=== PATIENT | female | born 1930 | race Caucasian/White ===

== ENCOUNTER → 2016-06-29 | Day surgery (SDC) | payer MEDICARE ==
[~2016-06-29] MED LIST: ALPRAZolam 0.25 MG TAB ONE; BACITRACIN OINT 1 EACH PACKET TOPICAL ONE; LIDOCAINE 1% INJ 10MG/ML (20 ML MDV) ONE; SODIUM BICARB 4% 5 ML VIAL (0.48 MEQ/ML) ONE
--- NOTE | 2016-06-29 16:44 | MM ---
EXAMINATION TYPE: MG stereo VAD BX LT DATE OF EXAM: 06/29/2016 3:30 PM COMPARISON: 05/31/2016 CLINICAL HISTORY: Abnormal mammogram TECHNIQUE: Stereotactic guided core biopsy of left breast. FINDINGS: The procedure of stereotactic guided core biopsy was explained to the patient. Benefits, alternatives, and risks were discussed. An informed consent was then obtained. A timeout was performed. The shortness pathway for biopsy was chosen. Shortness pathway was MLO approach. Radiologist performed the procedure and localization. A vacuum assisted biopsy gun was used to obtain 4 core samples. The patient tolerated the procedure well without any immediate complication. Small amount of bleeding was evident during the exam which was controlled with direct pressure. The patient was kept in the radiology department for short stay after the procedure and then discharged home in stable condition. Targeted calcifications are identified in specimen mammogram. Post biopsy mammogram shows the clip to appear in satisfactory position relative to the targeted area of concern on the preprocedure images. IMPRESSION: 1. Successful left breast stereotactic core biopsy left breast calcifications. Recommendations: 1. Recommendations are pending pathology results. 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 Recommendation Follow up mammogram of the left breast in 6 months. [place]
== END ==
LOC: RADMAMWWP 06-28 07:00
PROVIDERS: ATTEND Surgery
DX: D24.2 Benign neoplasm of left breast (principal); R92.0 Mammographic microcalcification found on diagnostic imaging of breast; N60.32 Fibrosclerosis of left breast; N60.22 Fibroadenosis of left breast
CPT/HCPCS: 88305; 19081; A4648; J2001

== ENCOUNTER 2016-11-24 17:27 | Emergency (ER) | payer MEDICARE ==
[2016-11-24 17:35] VITALS: RESP 18
--- NOTE | 2016-11-24 18:12 | ED ---
General Adult HPI - General Chief complaint: Fall Stated complaint: Fall-head pain Time Seen by Provider: 11/24/16 17:51 Source: patient, RN notes reviewed Mode of arrival: ambulatory Limitations: no limitations - History of Present Illness Initial comments: 86-year-old female presents to emergency room chief complaint fall. Patient states that she tripped over the sternum and the gradual. She fell into the left back of her head into her tailbone. Patient denies a headache. They deny him some bleeding. Patient does admit to pain to the bottom. Patient states she now discussed that she has not had nausea. Patient denies use of blood thinners. She was able to cannulate after the incident. They were concerned due to the bleeding had as well as the tailbone injury so they thought they should be evaluated. Patient denies any recent fever, chills, shortness of breath, chest pain, back pain, abdominal pain, nausea vomiting, numbness or tingling, dysuria or hematuria, constipation or diarrhea, headaches or visual changes, or any other current symptoms. - Related Data Allergies Allergy/AdvReac Type Severity Reaction Status Date / Time No Known Allergies Allergy Verified 11/24/16 17:35 Review of Systems ROS Statement: Those systems with pertinent positive or pertinent negative responses have been documented in the HPI. ROS Other: All systems not noted in ROS Statement are negative. Past Medical History Past Medical History: Thyroid Disorder History of Any Multi-Drug Resistant Organisms: None Reported Additional Past Surgical History / Comment(s): thyroidectomy Past Psychological History: No Psychological Hx Reported Smoking Status: Never smoker Past Alcohol Use History: None Reported Past Drug Use History: None Reported General Exam Limitations: no limitations General appearance: alert, in no apparent distress Head exam: Present: normocephalic, other. Absent: normal inspection (Patient is appear to have a 0.25 cm abrasion to the back of the head) Eye exam: Present: normal appearance, PERRL, EOMI. Absent: scleral icterus, conjunctival injection, periorbital swelling ENT exam: Present: normal exam, mucous membranes moist Neck exam: Present: normal inspection. Absent: tenderness, meningismus, lymphadenopathy Respiratory exam: Present: normal lung sounds bilaterally. Absent: respiratory distress, wheezes, rales, rhonchi, stridor Cardiovascular Exam: Present: regular rate, normal rhythm, normal heart sounds. Absent: systolic murmur, diastolic murmur, rubs, gallop, clicks Extremities exam: Present: normal inspection, full ROM, normal capillary refill. Absent: tenderness, pedal edema, joint swelling, calf tenderness Back exam: Present: normal inspection, full ROM, tenderness (Over the sacrum). Absent: CVA tenderness (R), CVA tenderness (L), muscle spasm, paraspinal tenderness, vertebral tenderness Neurological exam: Present: alert, oriented X3 Psychiatric exam: Present: normal affect, normal mood Skin exam: Present: warm, dry, intact, normal color. Absent: rash Course Vital Signs 11/24/16 17:29 Temperature 97.2 F L Pulse Rate 74 Respiratory 18 Rate Blood Pressure 133/69 O2 Sat by Pulse 100 Oximetry Medical Decision Making - Medical Decision Making 86-year-old female presents for head pain and back pain after fall. This time. There is reviewed. We did discuss the meningioma on CT. Centimeters acute process. We discussed snf. Discussed return parameters and follow-up outpatient questions. He stated the Steve management plan. They will be discharged home. Disposition Clinical Impression: Fall, Scalp hematoma, Scalp abrasion, Head injury, Sacral contusion Disposition: HOME SELF-CARE Condition: Stable Instructions: Fall Prevention for Older Adults (ED), Head Injury (ED), Contusion in Adults (ED) Additional Instructions: Please use medication as discussed. Please follow up with family doctor if symptoms have not improved over the next two days. Please return to the emergency room if your symptoms increase or worsen or for any other concerns. Referrals: Jacek Murcia MD [Primary Care Provider] - 1-2 days Time of Disposition: 19:10
--- NOTE | 2016-11-24 18:44 | CT ---
EXAMINATION TYPE: CT brain rudi vick DATE OF EXAM: 11/24/2016 COMPARISON: NONE HISTORY: Posterior head injury today. CT DLP: 1395 mGycm Automated exposure control for dose reduction was used. TECHNIQUE: CT scan of the head and cervical spine are performed without contrast. FINDINGS: There is cerebral cortical atrophy. There is no mass effect nor midline shift. There is n o sign of intracranial hemorrhage. There is mild hypodensity in the periventricular white matter. The calvarium is intact. There is extra-axial 2 x 1 cm area of calcification in the right posterior ruth etal convexity that could relate to a bilobed meningioma. The cervical vertebra show a few millimeter anterior subluxation of C4 in relation to C5. There is na rrowing of disc spaces from C4 to C7 with spurring of the endplates. The skull base is intact. There is hypertrophic facet arthropathy in the mid and lower cervical spine. I see no fracture. IMPRESSION: Cerebral atrophy and chronic small vessel ischemia. Right posterior parietal lobe convexity calcifica tion is probably due to calcifying meningioma. Moderate multilevel spondylosis in the cervical spine. No fracture.
--- NOTE | 2016-11-24 19:04 | XR ---
EXAMINATION TYPE: XR lumbar spine 2 or 3V DATE OF EXAM: 11/24/2016 COMPARISON: NONE HISTORY: Back pain TECHNIQUE: 3 views FINDINGS: Vertebra show fairly normal alignment. There is moderate narrowing of the disc spaces at L2 -3 L3-4 with spurring of the endplates. I see no definite compression fracture. There is mild subluxa tion of L2 to the right of L3 of 8 mm. Sacroiliac joints are intact. IMPRESSION: Multilevel spondylosis. Degenerative subluxation deformity at L2-3. No acute bony abnorma lity. Atheromatous aorta.
--- NOTE | 2016-11-24 19:05 | XR ---
EXAMINATION TYPE: XR sacrum coccyx DATE OF EXAM: 11/24/2016 COMPARISON: NONE HISTORY: Pain TECHNIQUE: 3 views FINDINGS: Segments have normal alignment. I see no fracture. Sacroiliac joints appear normal. IMPRESSION: Negative sacrum and coccyx exam.
[2016-11-24 19:27] VITALS: BP 161/72; PULSE 67; TEMP 98
== END 2016-11-24 19:27 | disposition home or self-care (01) ==
LOC: EC 17:27
DX: S00.03XA Contusion of scalp, initial encounter (principal); S30.0XXA Contusion of lower back and pelvis, initial encounter; W01.0XXA Fall on same level from slipping, tripping and stumbling without subsequent striking against object, initial encounter; Y92.015 Private garage of single-family (private) house as the place of occurrence of the external cause
CPT/HCPCS: 70450; 72100; 72125; 72220; 99284

== ENCOUNTER → 2018-12-03 | Outpatient (CLI) | payer MEDICARE ==
--- NOTE | 2018-12-04 17:09 | NM ---
EXAMINATION TYPE: NM parathyroid w/spect DATE OF EXAM: 12/03/2018 COMPARISON: NONE HISTORY: Hyperparathyroidism TECHNIQUE: Following administration of 23.9 mCi Tc99m Sestamibi. Anterior projection images of the neck and ches t were obtained 10 minutes and 3 hours post injection. SPECT images of the neck and chest were obtai micah and reconstructed in three axes. FINDINGS: Thyroid tracer washout: Delayed images demonstrate near-complete tracer washout from the thyroid. Parathyroid uptake: None. The delayed images do not demonstrate any focal abnormal persistent uptake in the region of the parathyroid glands to suggest parathyroid adenoma. Normal uptake: There is physiological tracer uptake in the myocardium, liver, salivary glands, and th yroid gland. SPECT imaging is reviewed. No suspicious focal areas of uptake identified IMPRESSION: 1. Normal parathyroid imaging study. No suspicious changes to suggest parathyroid adenoma.
== END | disposition home or self-care (01) ==
LOC: RADNMMAIN 11-21 11:18
PROVIDERS: ATTEND Internal Medicine
DX: E21.3 Hyperparathyroidism, unspecified (principal)
CPT/HCPCS: 78071; A9500

== ENCOUNTER 2020-04-30 14:26 | Emergency (ER) | payer MEDICARE ==
[2020-04-30 14:35] VITALS: RESP 18; TEMP 97.9
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
[2020-04-30 16:20] VITALS: BP 168/88; PULSE 98
== END 2020-04-30 16:25 | disposition home or self-care (01) ==
LOC: EC 14:26
DX: S00.03XA Contusion of scalp, initial encounter (principal); W22.8XXA Striking against or struck by other objects, initial encounter; Y92.008 Other place in unspecified non-institutional (private) residence as the place of occurrence of the external cause
CPT/HCPCS: 70450; 72125; 99284

== ENCOUNTER 2021-08-08 11:20 | Observation (INO) | payer MEDICARE ==
[2021-08-08 11:28] LABS: Glucose,Whole Blood 103 mg/dL (75-99)
--- NOTE | 2021-08-08 11:31 | ED ---
General Adult HPI - General Stated complaint: Fall Time Seen by Provider: 08/08/21 11:20 Source: patient, RN notes reviewed, old records reviewed - History of Present Illness Initial comments: This is an 89-year-old female who was found down this morning at approximately 10:45. Patient also had a fall earlier yesterday where she hurt her right arm but did not want come the hospital be evaluated. That arm is now swollen and v ritu ecchymotic around the elbow. Patient states other than the elbow from yesterday's fall she has no complaints. Patient initially according to EMS was somewhat confused but came around fairly quickly and was alert and oriented 4 and showed no signs of any stroke. Patient denies any headache patient denies neck pain patient denies any chest or back pain. Patient is abdominal pain patient denies any recent fever chills or cough per patient denies any abdominal pain. Patient denies any recent vomiting or diarrhea. - Related Data Home Medications Medication Instructions Recorded Confirmed Apixaban [Eliquis] 2.5 mg PO BID 08/08/21 08/08/21 Atorvastatin [Lipitor] 10 mg PO HS 08/08/21 08/08/21 Dorzolamide 2% [Trusopt 2%] 1 drops BOTH EYES BID 08/08/21 08/08/21 Metoprolol Tartrate [Lopressor] 100 mg PO BID-W/MEALS 08/08/21 08/08/21 hydrALAZINE HCL [Apresoline] 25 mg PO BID 08/08/21 08/08/21 lisinopriL [Zestril] 20 mg PO DAILY 08/08/21 08/08/21 Allergies Allergy/AdvReac Type Severity Reaction Status Date / Time No Known Allergies Allergy Verified 08/08/21 13:42 Review of Systems ROS Statement: Those systems with pertinent positive or pertinent negative responses have been documented in the HPI. ROS Other: All systems not noted in ROS Statement are negative. Past Medical History Past Medical History: Thyroid Disorder Additional Past Medical History / Comment(s): essential tremmors. History of Any Multi-Drug Resistant Organisms: None Reported Additional Past Surgical History / Comment(s): thyroidectomy Past Psychological History: No Psychological Hx Reported Past Alcohol Use History: None Reported Past Drug Use History: None Reported General Exam - General Exam Comments Initial Comments: GENERAL: Patient is well-developed and well-nourished. Patient is nontoxic and well- hydrated and is in mild distress. ENT: Neck is soft and supple. No significant lymphadenopathy is noted. Oropharynx is clear. Moist mucous membranes. Neck has full range of motion without eliciting any pain. Patient has a little ecchymosis to the right lateral orbital area EYES: The sclera were anicteric and conjunctiva were pink and moist. Extraocular movements were intact and pupils were equal round and reactive to light. Eyelids were unremarkable. PULMONARY: Unlabored respirations. Good breath sounds bilaterally. No audible rales rhonchi or wheezing was noted. CARDIOVASCULAR: There is a regular rate and rhythm without any murmurs gallops or rubs. ABDOMEN: Soft and nontender with normal bowel sounds. SKIN: Skin is clear with no lesions or rashes and otherwise unremarkable. NEUROLOGIC: Patient is alert and oriented x3. Cranial nerves II through XII are grossly intact. Motor and sensory are also intact. Normal speech, volume and content. Symmetrical smile. MUSCULOSKELETAL: Normal extremities with adequate strength and full range of motion. Right elbow is swollen and very ecchymotic and tender to palpation LYMPHATICS: No significant lymphadenopathy is noted PSYCHIATRIC: Normal psychiatric evaluation. Course Vital Signs 08/08/21 11:21 Temperature 97.5 F L Pulse Rate 108 H Respiratory 22 Rate Blood Pressure 150/110 O2 Sat by Pulse 96 Oximetry Procedures - Orthopedic Splinting/Casting Injury #1 Side: right Upper Extremity Injury Location: long arm, elbow Upper Extremity Immobilizer: posterior splint Medical Decision Making - Medical Decision Making EKG shows atrial flutter at 104 bpm QRS is 98 QT interval 316 QTC is 429. Patient's EKG shows no ST segment elevation or depression. CT of the brain and C-spine showed no abnormalities. New. Chest x-ray shows no acute abnormality. X-ray of the elbow shows an olecranon fracture. I spoke with Cynthia, she agreed to admit the patient admitted the patient wrote admitting orders. I consult the medicine. - Lab Data Result diagrams: 08/08/21 11:23 08/08/21 11:23 Lab Results 08/08/21 08/08/21 08/08/21 Range/Units 11:23 11:23 11:23 WBC 13.2 H (3.8-10.6) k/uL RBC 4.87 (3.80-5.40) m/uL Hgb 16.2 H (11.4-16.0) gm/dL Hct 49.6 H (34.0-46.0) % MCV 101.8 H (80.0-100.0) fL MCH 33.3 (25.0-35.0) pg MCHC 32.7 (31.0-37.0) g/dL RDW 12.9 (11.5-15.5) % Plt Count 197 (150-450) k/uL MPV 8.0 Neutrophils % 74 % Lymphocytes % 16 % Monocytes % 5 % Eosinophils % 0 % Basophils % 0 % Neutrophils # 9.8 H (1.3-7.7) k/uL Lymphocytes # 2.1 (1.0-4.8) k/uL Monocytes # 0.7 (0-1.0) k/uL Eosinophils # 0.1 (0-0.7) k/uL Basophils # 0.1 (0-0.2) k/uL Macrocytosis Slight PT 10.5 (9.0-12.0) sec INR 1.0 (<1.2) APTT 23.9 (22.0-30.0) sec Sodium 138 (137-145) mmol/L Potassium 4.4 (3.5-5.1) mmol/L Chloride 102 (98-107) mmol/L Carbon Dioxide 27 (22-30) mmol/L Anion Gap 9 mmol/L BUN 16 (7-17) mg/dL Creatinine 0.56 (0.52-1.04) mg/dL Est GFR (CKD-EPI)AfAm >90 (>60 ml/min/1.73 sqM) Est GFR (CKD-EPI)NonAf 83 (>60 ml/min/1.73 sqM) Glucose 117 H (74-99) mg/dL POC Glucose (mg/dL) (75-99) mg/dL POC Glu Control Room Operator ID Calcium 9.7 (8.4-10.2) mg/dL Magnesium 2.1 (1.6-2.3) mg/dL Total Bilirubin 2.1 H (0.2-1.3) mg/dL AST 59 H (14-36) U/L ALT 29 (4-34) U/L Alkaline Phosphatase 100 (38-126) U/L Creatine Kinase 485 H (30-135) U/L Troponin I (0.000-0.034) ng/mL Total Protein 7.4 (6.3-8.2) g/dL Albumin 4.5 (3.5-5.0) g/dL Urine Color Urine Appearance (Clear) Urine pH (5.0-8.0) Ur Specific [place] (1.001-1.035) Urine Protein (Negative) Urine Glucose (UA) (Negative) Urine Ketones (Negative) Urine Blood (Negative) Urine Nitrite (Negative) Urine Bilirubin (Negative) Urine Urobilinogen (<2.0) mg/dL Ur Leukocyte Esterase (Negative) Urine RBC (0-5) /hpf Urine WBC (0-5) /hpf Urine Bacteria (None) /hpf Urine Mucus (None) /hpf 08/08/21 08/08/21 08/08/21 Range/Units 11:23 11:26 11:52 WBC (3.8-10.6) k/uL RBC (3.80-5.40) m/uL Hgb (11.4-16.0) gm/dL Hct (34.0-46.0) % MCV (80.0-100.0) fL MCH (25.0-35.0) pg MCHC (31.0-37.0) g/dL RDW (11.5-15.5) % Plt Count (150-450) k/uL MPV Neutrophils % % Lymphocytes % % Monocytes % % Eosinophils % % Basophils % % Neutrophils # (1.3-7.7) k/uL Lymphocytes # (1.0-4.8) k/uL Monocytes # (0-1.0) k/uL Eosinophils # (0-0.7) k/uL Basophils # (0-0.2) k/uL Macrocytosis PT (9.0-12.0) sec INR (<1.2) APTT (22.0-30.0) sec Sodium (137-145) mmol/L Potassium (3.5-5.1) mmol/L Chloride (98-107) mmol/L Carbon Dioxide (22-30) mmol/L Anion Gap mmol/L BUN (7-17) mg/dL Creatinine (0.52-1.04) mg/dL Est GFR (CKD-EPI)AfAm (>60 ml/min/1.73 sqM) Est GFR (CKD-EPI)NonAf (>60 ml/min/1.73 sqM) Glucose (74-99) mg/dL POC Glucose (mg/dL) 103 H (75-99) mg/dL POC Glu Control Room Operator ID [place] Calcium (8.4-10.2) mg/dL Magnesium (1.6-2.3) mg/dL Total Bilirubin (0.2-1.3) mg/dL AST (14-36) U/L ALT (4-34) U/L Alkaline Phosphatase (38-126) U/L Creatine Kinase (30-135) U/L Troponin I 0.013 (0.000-0.034) ng/mL Total Protein (6.3-8.2) g/dL Albumin (3.5-5.0) g/dL Urine Color Yellow Urine Appearance Clear (Clear) Urine pH 6.0 (5.0-8.0) Ur Specific [place] 1.013 (1.001-1.035) Urine Protein Trace H (Negative) Urine Glucose (UA) Negative (Negative) Urine Ketones 1+ H (Negative) Urine Blood Trace H (Negative) Urine Nitrite Negative (Negative) Urine Bilirubin Negative (Negative) Urine Urobilinogen <2.0 (<2.0) mg/dL Ur Leukocyte Esterase Negative (Negative) Urine RBC 20 H (0-5) /hpf Urine WBC 1 (0-5) /hpf Urine Bacteria Rare H (None) /hpf Urine Mucus Rare H (None) /hpf Disposition Clinical Impression: Fall, Syncope Disposition: ADMITTED IP TO THIS HOSP Referrals: Jacek Murcia MD [Primary Care Provider] - 1-2 days Time of Disposition: 13:17
[2021-08-08 11:49] LABS: Basophils # (A) 0.1 k/uL (0-0.2); Basophils % (A) 0 %; Eosinophils # (A) 0.1 k/uL (0-0.7); Eosinophils % (A) 0 %; HCT 49.6 % (34.0-46.0); HGB 16.2 gm/dL (11.4-16.0); Lymphocytes # (A) 2.1 k/uL (1.0-4.8); Lymphocytes % (A) 16 %; MCH 33.3 pg (25.0-35.0); MCHC 32.7 g/dL (31.0-37.0); MCV 101.8 fL (80.0-100.0); Macrocytosis Slight; Monocytes # (A) 0.7 k/uL (0-1.0); Monocytes % (A) 5 %; Neutrophils # (A) 9.8 k/uL (1.3-7.7); Neutrophils % (A) 74 %; Platelet Count 197 k/uL (150-450); RBC 4.87 m/uL (3.80-5.40); RDW 12.9 % (11.5-15.5); WBC 13.2 k/uL (3.8-10.6)
[2021-08-08 11:58] LABS: ALT 29 U/L (4-34); AST 59 U/L (14-36); African American GFR (CKD) >90 (>60 ml/min/1.73 sqM); Albumin 4.5 g/dL (3.5-5.0); Alkaline Phosphatase 100 U/L (38-126); Anion Gap 9 mmol/L; Blood Urea Nitrogen 16 mg/dL (7-17); Calcium 9.7 mg/dL (8.4-10.2); Carbon Dioxide 27 mmol/L (22-30); Chloride 102 mmol/L (98-107); Creatine Kinase 485 U/L (30-135); Glucose 117 mg/dL (74-99); Magnesium 2.1 mg/dL (1.6-2.3); Non-African American GFR(CKD) 83 (>60 ml/min/1.73 sqM); Sodium 138 mmol/L (137-145); Total Bilirubin 2.1 mg/dL (0.2-1.3); Total Protein 7.4 g/dL (6.3-8.2)
[2021-08-08 12:00] LABS: Potassium 4.4 mmol/L (3.5-5.1)
--- NOTE | 2021-08-08 12:02 | CT ---
EXAMINATION TYPE: CT brain kerryine wo con DATE OF EXAM: 08/08/2021 COMPARISON: 04/30/2020 HISTORY: Fall pain CT DLP: 1325.8 mGycm Automated exposure control for dose reduction was used. TECHNIQUE: CT scan of the head and cervical spine are performed without contrast. FINDINGS: There is no acute intracranial hemorrhage or midline shift identified. Moderate diffuse v entricular and sulcal prominence. Moderate to severe low-attenuation in the deep and periventricular white matter. Persistent extra- axial calcification or ossification high right frontal parietal christin on stable may represent an area of hyperostosis or osteoma. Calcified meningioma felt less likely. Th e globes are intact and changes of ethmoidal and maxillary sinusitis noted.. Persistent left frontal sinus with focal sclerosis redemonstrated. The calvarium remains intact no density seen in the basal ganglia compatible with remote lacunar infarct. Cervical spine is visualized in its entirety from C1 through upper thoracic levels and redemonstrates convex scoliosis centered lower cervical spine without evidence of acute fracture or dislocation. As sessment spinal canal limited due to artifact and resolution Persistent grade 1 retrolisthesis C3 on C4 and grade 1 anterolisthesis C4 on C5 along with grade 1 retrolisthesis C5 on C6. Prevertebral soft tissue appears within normal limits. The C1-C2 articulation is within normal limits on the coronal i mages. Vertebral body heights are maintained. Stable advanced disc space narrowing C5- C6 level poste rior spur disc complex effacing anterior thecal sac. Axial images show multilevel uncovertebral facet degenerative changes contributing to bilateral multilevel neural foraminal narrowing worse at left C 5-C6 level similar to prior. Moderate calcified plaque bilateral carotid bulb level redemonstrated. L anup apices show no pneumothorax. Changes of COPD and subsegmental atelectasis noted. Atherosclerotic change of the carotid arteries. Ectasia of the visualized portion of the thoracic aorta with atherosc lerotic changes. 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 IMPRESSION: 1. There is no acute fracture or dislocation evident in the cervical spine. Multilevel severe degener ative disc disease with grade 1 anterolisthesis C4 on C5. Suspect multilevel foraminal encroachment c anal stenosis recommend MRI. 2. No acute intracranial hemorrhage, mass effect, or midline shift is seen. Degenerative and nonspeci fic white matter changes most typical of remote white matter ischemia.
[2021-08-08 12:03] LABS: Partial Thromboplastin Time 23.9 sec (22.0-30.0); Prothrombin Time 10.5 sec (9.0-12.0)
--- NOTE | 2021-08-08 13:03 | XR ---
EXAMINATION TYPE: XR chest 2V DATE OF EXAM: 08/08/2021 COMPARISON: NONE TECHNIQUE: PA and lateral views submitted. HISTORY: Pain FINDINGS: Atherosclerotic change aorta. Severe cardiomegaly. Atherosclerotic change aorta. Faint 7 mm nodule ri ght upper lobe. Hyperinflation suggests COPD and there is degenerative changes of the spine. Diffuse osteopenia. Chronic left clavicular fracture. Subsegmental linear changes left lung base most typical of atelectasis. IMPRESSION: 1. Cardiomegaly and COPD correlate clinically. 2. Cannot exclude a tiny nodule subcentimeter right upper lobe.
--- NOTE | 2021-08-08 13:05 | XR ---
EXAMINATION TYPE: XR elbow complete RT DATE OF EXAM: 08/08/2021 COMPARISON: NONE HISTORY: Pain FINDINGS: Three views of the elbow demonstrate soft tissue edema and a intra-articular fracture of the ulna. An terior fat pad displacement noted. Tiny olecranon spur noted. IMPRESSION: 1. Findings compatible with an intra-articular fracture with mild displacement of the proximal ulna.
[2021-08-08 13:32] LABS: Appearance,Urine Clear (Clear); Bacteria,Urine Rare /hpf; Bilirubin,Urine Negative (Negative); Blood,Urine Trace (Negative); Color,Urine Yellow; Glucose,Urine (UA) Negative (Negative); Ketones,Urine 1+ (Negative); Leukocyte Esterase,Urine Negative (Negative); Mucus,Urine Rare /hpf; Nitrite,Urine Negative (Negative); Protein,Urine Trace (Negative); RBC,Urine 20 /hpf (0-5); Specific Gravity,Urine 1.013 (1.001-1.035); Urobilinogen,Urine <2.0 mg/dL (<2.0); WBC,Urine 1 /hpf (0-5)
[2021-08-08] MEDS ORDERED: SODIUM CHLORIDE 0.9% 1,000 ML IV ONE (13:52)
[2021-08-08] MEDS ORDERED: ACETAMINOPHEN TAB 325 MG TAB PO PRN (17:10)
[2021-08-08] MEDS: METOPROLOL TARTRATE 50 MG TAB PO SCH (17:38)
--- NOTE | 2021-08-08 17:58 | P.CONS ---
History of Present Illness - Reason for Consult Consult date: 08/08/21 (Right elbow fracture, atrial flutter) Medical management - History of Present Illness Medical consult requested by the orthopedic associate Date of service 08/08/2021. Patient fell at home yesterday with the unbalanced try to hold her balance with her right elbow resulted in fracture. History of present illness: The history obtained from her daughter and her son at bedside and patient could not recall the holes history. Her daughter stated that she was unbalanced and fell down and she was trying to do the flower in her home and she had her elbow the right side on the brakes and subsequently was rested as she told her daughter on the phone. In a.m. her daughter went to check on her as she live alone and found that the daughter is wide open and patient fell on the floor and she at that time called the EMS to bring her to the hospital where they found that she had broken elbow and the cold the orthopedic surgeon. Patient also found on the reviewing of the records from the ER that she had atrial flutter with tachycardia and had recurrent fall by the family history with a syncopal episode as she found her on the floor at home laying down probably all night. In the EKG was indicating atrial flutter/tachycardia with a rapid ventricular response. Incomplete right bundle branch block. Left anterior fascicular block. Anterior myocardial infarction. With the abnormal EKG. Patient had in the ER elbow x-ray, chest x-ray, computed tomography scan of the head and cervical spine. As well Patient complained of right knee pain with the fall apparently when she fell down and hit the right knee with that. To be fluctuation and fluid and pain with examination with a failure to another x-ray of the knee on the right side. Patient has history of speech disturbance and that her respiratory and she has been seen in the past the ear and nose and throat. She has no history of CVA or TIA in the past however she had history of atrial fibrillation currently is flutter with rapid ventricular response. Patient apparently did not take her medication at home and will resume all medication and consult cardiology as well. And obtain x-ray of the right knee. Patient has history: #1 status post hyperparathyroidism with a minimal recurrent and the parathyroids resected a few years ago. She had history of hypertension was hypertensive heart disease. She requested no CODE STATUS. And she able to move her lower extremities and left upper extremities and she is in a cast soft in the right elbow. Family history she has a son and a daughter. At bedside. The review of system Neuro psychiatry: She had currently within the last 2 days frequent fall with a syncopal episode. 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 Endocrine history of hyperparathyroidism in the past with still minimal elevation of parathyroid hormone. Musculoskeletal frail and thin body structure. On the exam: Patient is conscious alert oriented currently and no headache no blurred vision no fascial asymmetry. She able to communicate freely with the her daughter and her son and granddaughter at bedside. The head was normocephalic and atraumatic pupil was equal reactive conjunctiva was pink sclera was non-icteric. Mild hearing deficit. Neck was supple no JVD no thyromegaly no lymphadenopathy trachea midline questionable bruits Chest clear to auscultation and percussion no wheezes no rhonchi's Heart irregular irregularities with the underlying atrial flutter fibrillation with the RVR. Abdomen soft positive bowel sounds Extremities she had compound fracture of the elbow, lower extremity presence of right knee ballottement with possible effusion of the right knee. No evidence of broken bones in the lower extremities. Neurologically: Frequent fall with syncopal episode on outerwear but. Assessment: #1 syncopal episode #2 atrial flutter/fibrillation with RVR #3 fracture with that falling off the right elbow. #4 hypertension was hypertensive heart disease. Plan: Patient admitted under the orthopedic surgeon who will plan to have cast on the elbow with no surgery. #2 resume medications from home #3 consultation with the cardiology with the RVR of if atrial flutter and fibrillation. With the evidence of syncopal episode. #40 pain x-ray of the right knee. To rule out trauma and effusion #5 carotid duplex study to rule out carotid artery stenosis with the recurrent SYNCOPAL episode. Resume and eliquois Past Medical History Past Medical History: Atrial Flutter, Hypertension, Thyroid Disorder Additional Past Medical History / Comment(s): essential tremmors, high cholesterol. History of Any Multi-Drug Resistant Organisms: None Reported Additional Past Surgical History / Comment(s): thyroidectomy Past Psychological History: No Psychological Hx Reported Smoking Status: Never smoker Past Alcohol Use History: None Reported Past Drug Use History: None Reported - Past Family History Mother Additional Family Medical History / Comment(s): Breast cancer, Lung cancer Father Family Medical History: CVA/TIA, Myocardial Infarction ([place]) Medications and Allergies Home Medications Medication Instructions Recorded Confirmed Type Apixaban [Eliquis] 2.5 mg PO BID 08/08/21 08/08/21 History Atorvastatin [Lipitor] 10 mg PO HS 08/08/21 08/08/21 History Dorzolamide 2% [Trusopt 2%] 1 drops BOTH EYES BID 08/08/21 08/08/21 History Metoprolol Tartrate [Lopressor] 100 mg PO BID-W/MEALS 08/08/21 08/08/21 History hydrALAZINE HCL [Apresoline] 25 mg PO BID 08/08/21 08/08/21 History lisinopriL [Zestril] 20 mg PO DAILY 08/08/21 08/08/21 History Allergies Allergy/AdvReac Type Severity Reaction Status Date / Time No Known Allergies Allergy Verified 08/08/21 13:42 Physical Exam Vitals: Vital Signs Temp Pulse Resp BP Pulse Ox 08/08/21 16:10 97.8 F 08/08/21 16:00 72 16 149/80 95 08/08/21 15:37 102 H 20 156/89 95 08/08/21 15:00 82 20 147/77 96 08/08/21 13:00 97.2 F L 102 H 20 139/52 96 08/08/21 11:21 97.5 F L 108 H 22 150/110 96 Intake and Output 08/08/21 08/08/21 08/08/21 06:59 14:59 22:59 Other: Weight 48.5 kg Results CBC & Chem 7: 08/08/21 11:23 08/08/21 11:23 Labs: Abnormal Lab Results - Last 24 Hours (Table) 08/08/21 08/08/21 08/08/21 Range/Units 11:23 11:23 11:26 WBC 13.2 H (3.8-10.6) k/uL Hgb 16.2 H (11.4-16.0) gm/dL Hct 49.6 H (34.0-46.0) % MCV 101.8 H (80.0-100.0) fL Neutrophils # 9.8 H (1.3-7.7) k/uL Glucose 117 H (74-99) mg/dL POC Glucose (mg/dL) 103 H (75-99) mg/dL Total Bilirubin 2.1 H (0.2-1.3) mg/dL AST 59 H (14-36) U/L Creatine Kinase 485 H (30-135) U/L Urine Protein (Negative) Urine Ketones (Negative) Urine Blood (Negative) Urine RBC (0-5) /hpf Urine Bacteria (None) /hpf Urine Mucus (None) /hpf 08/08/21 Range/Units 11:52 WBC (3.8-10.6) k/uL Hgb (11.4-16.0) gm/dL Hct (34.0-46.0) % MCV (80.0-100.0) fL Neutrophils # (1.3-7.7) k/uL Glucose (74-99) mg/dL POC Glucose (mg/dL) (75-99) mg/dL Total Bilirubin (0.2-1.3) mg/dL AST (14-36) U/L Creatine Kinase (30-135) U/L Urine Protein Trace H (Negative) Urine Ketones 1+ H (Negative) Urine Blood Trace H (Negative) Urine RBC 20 H (0-5) /hpf Urine Bacteria Rare H (None) /hpf Urine Mucus Rare H (None) /hpf
--- NOTE | 2021-08-08 18:16 | P.HPOR ---
History of Present Illness H&P Date: 08/08/21 Chief Complaint: Right elbow pain. This is a 89-year-old female who is brought to the emergency department today after falling in her flower bed and hitting her head on the side of the house and injuring her right elbow. On exam and x-ray in the emergency department she was found to have a right olecranon fracture. Secondary to her age and immobility it is recommended she be admitted for possible placement and workup for her atrial fibrillation and atrial flutter with RVR. She is admitted to our service with Dr. Murcia on consult. Past Medical History Past Medical History: Atrial Flutter, Hypertension, Thyroid Disorder Additional Past Medical History / Comment(s): essential tremmors, high cholester ol. History of Any Multi-Drug Resistant Organisms: None Reported Additional Past Surgical History / Comment(s): thyroidectomy Past Psychological History: No Psychological Hx Reported Smoking Status: Never smoker Past Alcohol Use History: None Reported Past Drug Use History: None Reported - Past Family History Mother Additional Family Medical History / Comment(s): Breast cancer, Lung cancer Father Family Medical History: CVA/TIA, Myocardial Infarction ([place]) Medications and Allergies Home Medications Medication Instructions Recorded Confirmed Type Apixaban [Eliquis] 2.5 mg PO BID 08/08/21 08/08/21 History Atorvastatin [Lipitor] 10 mg PO HS 08/08/21 08/08/21 History Dorzolamide 2% [Trusopt 2%] 1 drops BOTH EYES BID 08/08/21 08/08/21 History Metoprolol Tartrate [Lopressor] 100 mg PO BID-W/MEALS 08/08/21 08/08/21 History hydrALAZINE HCL [Apresoline] 25 mg PO BID 08/08/21 08/08/21 History lisinopriL [Zestril] 20 mg PO DAILY 08/08/21 08/08/21 History Allergies Allergy/AdvReac Type Severity Reaction Status Date / Time No Known Allergies Allergy Verified 08/08/21 13:42 Physical Examination This is a pleasant 89-year-old female in no acute distress. She is alert and oriented at this time. Family is present at bedside. Exam of the head neck reveal no obvious deformity. There are no bumps or abrasions to the head. She has full cervical spine motion without difficulty or pain. No tenderness with palpation about the paraspinal musculature. Exam of the upper extremities reveals a long-arm splint in place on the right. She has full finger motion without difficulty or pain. Neurovascular status to the upper extremities is intact. Exam of the lower extremities reveals no hip irritability. Logroll does not produce pain to either hip. There is a 1-2+ effusion to the right knee. She is able to bend the knee without difficulty. She has minimal tenderness to palpation about the knee. Neurovascular status to the lower extremity is intact. Results X-rays of the right elbow reveal a nondisplaced olecranon fracture, intra- articular. No other fractures identified. - Labs Labs: Abnormal Lab Results - Last 24 Hours (Table) 08/08/21 08/08/21 08/08/21 Range/Units 11:23 11:23 11:26 WBC 13.2 H (3.8-10.6) k/uL Hgb 16.2 H (11.4-16.0) gm/dL Hct 49.6 H (34.0-46.0) % MCV 101.8 H (80.0-100.0) fL Neutrophils # 9.8 H (1.3-7.7) k/uL Glucose 117 H (74-99) mg/dL POC Glucose (mg/dL) 103 H (75-99) mg/dL Total Bilirubin 2.1 H (0.2-1.3) mg/dL AST 59 H (14-36) U/L Creatine Kinase 485 H (30-135) U/L Urine Protein (Negative) Urine Ketones (Negative) Urine Blood (Negative) Urine RBC (0-5) /hpf Urine Bacteria (None) /hpf Urine Mucus (None) /hpf 08/08/21 Range/Units 11:52 WBC (3.8-10.6) k/uL Hgb (11.4-16.0) gm/dL Hct (34.0-46.0) % MCV (80.0-100.0) fL Neutrophils # (1.3-7.7) k/uL Glucose (74-99) mg/dL POC Glucose (mg/dL) (75-99) mg/dL Total Bilirubin (0.2-1.3) mg/dL AST (14-36) U/L Creatine Kinase (30-135) U/L Urine Protein Trace H (Negative) Urine Ketones 1+ H (Negative) Urine Blood Trace H (Negative) Urine RBC 20 H (0-5) /hpf Urine Bacteria Rare H (None) /hpf Urine Mucus Rare H (None) /hpf H & H 08/08/21 Range/Units 11:23 Hgb 16.2 H (11.4-16.0) gm/dL Hct 49.6 H (34.0-46.0) % Coagulation 08/08/21 Range/Units 11:23 INR 1.0 (<1.2) Result Diagrams: 08/08/21 11:23 08/08/21 11:23 Assessment and Plan (1) Fracture of olecranon process, right, closed Current Visit: Yes Status: Acute Code(s): S52.021A - DISP FX OF OLECRAN PRO W/O INTARTIC EXTN RIGHT ULNA, INIT SNOMED Code(s): 68053573 (2) Effusion, right knee Current Visit: Yes Status: Acute Code(s): M25.461 - EFFUSION, RIGHT KNEE SNOMED Code(s): 273390266721094 (3) Syncope Current Visit: Yes Status: Acute Code(s): R55 - SYNCOPE AND COLLAPSE SNOMED Code(s): 819714001 (4) History of atrial fibrillation Current Visit: Yes Status: Acute Code(s): Z86.79 - PERSONAL HISTORY OF OTHER DISEASES OF THE CIRCULATORY SYSTEM SNOMED Code(s): 506119400 Plan: The clinical and x-ray findings are discussed with the patient and her family. She is currently in a long-arm splint. We will transition to a long-arm cast in the few days once swelling is improved. There is no surgical indication for this fracture. I will plan transferring attending care to her primary care physician, Dr. Murcia.
--- NOTE | 2021-08-08 18:33 | XR ---
EXAMINATION TYPE: XR knee complete RT DATE OF EXAM: 08/08/2021 COMPARISON: NONE HISTORY: Knee pain TECHNIQUE: 3 views FINDINGS: There is mild narrowing of the lateral joint space. I see no fracture nor dislocation. Ther e is a mild knee joint effusion. There is vascular calcification. IMPRESSION: Knee joint effusion. No fracture seen. 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
[2021-08-08] MEDS: ATORVASTATIN 10 MG TAB PO SCH (21:07)
[2021-08-08] MEDS: DORZOLAMIDE HCL 2% DROPS 10 ML BTL BOTH EYES SCH (21:07)
[2021-08-08] MEDS: APIXABAN 2.5 MG TABLET PO SCH (21:07)
[2021-08-08] MEDS: hydrALAZINE HCL 25 MG TAB PO SCH (21:08)
[2021-08-09] MEDS: lisinopriL 20 MG TAB PO SCH (09:33)
[2021-08-09] MEDS: hydrALAZINE HCL 25 MG TAB PO SCH ×2 (09:33→20:36)
[2021-08-09] MEDS: METOPROLOL TARTRATE 50 MG TAB PO SCH ×2 (09:33→18:09)
[2021-08-09] MEDS: APIXABAN 2.5 MG TABLET PO SCH ×2 (09:33→20:36)
[2021-08-09] MEDS: DORZOLAMIDE HCL 2% DROPS 10 ML BTL BOTH EYES SCH ×2 (09:34→20:36)
--- NOTE | 2021-08-09 10:05 | P.CRDCN ---
History of Present Illness Consult date: 08/09/21 History of present illness: HISTORY OF PRESENT ILLNESS: This is a 89-year-old female with a past medical history significant for atrial fibrillation/flutter, hypertension, and hyperlipidemia. Patient follows in the office with Dr. Sands. We have been asked to see the patient in consultation for atrial fibrillation. Patient examined at the bedside. The patient presented to the hospital after experiencing a fall at home. She was working out in the flower bed and fell. She has been diagnosed with a right olecranon fracture. She has been evaluated by orthopedics and there is no plans for surgical intervention at this time. The patient's family is at the bedside and reports that the patient has had a few falls recently. The family members are unsure if these falls are all mechanical in nature or if they may have been secondary to a syncopal episode. The patient denies any chest pain or pressure. She denies shortness of breath. She denies dizziness or lightheadedness. * EKG reveals atrial flutter with a heart rate of 104 * Chest xray cardiomegaly and COPD. Correlate chronically. Cannot extrude a tiny nodule subcentimeter right upper lobe. * Laboratory data: WBC 13.2. Hemoglobin 16.2. Platelet count 197. Sodium 138. Potassium 4.4. BUN 16. Creatinine 0.56. Troponin negative 1. Creatinine kinase 485. * Current home cardiac medications include lisinopril 20 mg daily, metoprolol tartrate 100 mg twice a day, hydralazine 25 mg twice a day, Lipitor 10 mg at night, and Eliquis 2.5mg BID * Patient underwent echocardiogram in May 2021 at the office revealing ejection fraction 55%, trace aortic regurgitation mild mitral regurgitation, and moderate tricuspid regurgitation REVIEW OF SYSTEMS: At the time of my exam: CONSTITUTIONAL: Denies fever or chills. HEENT: Denies blurred vision, vision changes, or eye pain. Denies hemoptysis CARDIOVASCULAR: Denies chest pain. Denies orthopnea. Denies PND. Denies palpitations RESPIRATORY: Denies shortness of breath. GASTROINTESTINAL: Denies abdominal pain. Denies nausea or vomiting. HEMATOLOGIC: Denies bleeding disorders. GENITOURINARY: Denies any blood in urine. SKIN: Denies pruitis. Denies rash. PHYSICAL EXAM: VITAL SIGNS: Reviewed. GENERAL: Well-developed in no acute distress. HEENT: Head is normocephalic. Pupils are equal, round. Sclerae anicteric. Mucous membranes of the mouth are moist. Neck supple. No JVD or thyromegaly LUNGS: Respirations even and unlabored. Lungs essentially clear to auscultation bilaterally. HEART: Irregular rate and rhythm. S1 and S2 heard. ABDOMEN: Soft. Nondistended. Nontender. EXTREMITIES: Normal range of motion. No clubbing or cyanosis. Peripheral pulses intact. No lower extremity edema NEUROLOGIC: Awake and alert. Oriented x 3. ASSESSMENT: S/P Fall Right olecranon fracture Right knee effusion Persistent atrial fibrillation/typical atrial flutter with mild RVR Hypertension Hyperlipidemia PLAN: No need to repeat echocardiogram as this was performed in May 2021 at the office Initiate telemetry monitoring to assess for any tachybrady arrhythmias Continue home cardiac medications Will consider event monitor on an outpatient basis Further recommendations pending patient course Nurse practitioner note has been reviewed by physician. Signing provider agrees with the documented findings, assessment, and plan of care. Past Medical History Past Medical History: Atrial Flutter, Hypertension, Thyroid Disorder Additional Past Medical History / Comment(s): essential tremmors, high cholesterol. History of Any Multi-Drug Resistant Organisms: None Reported Additional Past Surgical History / Comment(s): thyroidectomy Past Psychological History: No Psychological Hx Reported Smoking Status: Never smoker Past Alcohol Use History: None Reported Past Drug Use History: None Reported - Past Family History Mother Additional Family Medical History / Comment(s): Breast cancer, Lung cancer Father Family Medical History: CVA/TIA, Myocardial Infarction ([place]) Medications and Allergies Home Medications Medication Instructions Recorded Confirmed Type Apixaban [Eliquis] 2.5 mg PO BID 08/08/21 08/08/21 History Atorvastatin [Lipitor] 10 mg PO HS 08/08/21 08/08/21 History Dorzolamide 2% [Trusopt 2%] 1 drops BOTH EYES BID 08/08/21 08/08/21 History Metoprolol Tartrate [Lopressor] 100 mg PO BID-W/MEALS 08/08/21 08/08/21 History hydrALAZINE HCL [Apresoline] 25 mg PO BID 08/08/21 08/08/21 History lisinopriL [Zestril] 20 mg PO DAILY 08/08/21 08/08/21 History Allergies Allergy/AdvReac Type Severity Reaction Status Date / Time No Known Allergies Allergy Verified 08/08/21 13:42 Physical Exam Vitals: Vital Signs Temp Pulse Pulse Resp BP BP Pulse Ox 08/09/21 05:15 98.2 F 104 H 18 122/77 93 L 08/08/21 21:04 114 H 119/73 08/08/21 20:46 98.5 F 97 16 106/62 97 08/08/21 19:15 114 H 16 08/08/21 16:24 98.9 F 107 H 18 169/85 94 L 08/08/21 16:10 97.8 F 08/08/21 16:00 72 16 149/80 95 08/08/21 15:37 102 H 20 156/89 95 08/08/21 15:00 82 20 147/77 96 08/08/21 13:00 97.2 F L 102 H 20 139/52 96 08/08/21 11:21 97.5 F L 108 H 22 150/110 96 Intake and Output 08/08/21 08/09/21 08/09/21 22:59 06:59 14:59 Intake Total 900 Balance 900 Intake: Intake, IV Titration 900 Amount Sodium Chloride 0.9% 1, 900 000 ml @ 75 mls/hr IV . [id number] ONE Rx#:[id number] Other: Voiding Method Bedside Commode Diaper # Voids 4 Results 08/08/21 11:23 08/08/21 11:23 Cardiac Enzymes 08/08/21 08/08/21 Range/Units 11:23 11:23 AST 59 H (14-36) U/L Troponin I 0.013 (0.000-0.034) ng/mL Coagulation 08/08/21 Range/Units 11:23 PT 10.5 (9.0-12.0) sec APTT 23.9 (22.0-30.0) sec CBC 08/08/21 Range/Units 11:23 WBC 13.2 H (3.8-10.6) k/uL RBC 4.87 (3.80-5.40) m/uL Hgb 16.2 H (11.4-16.0) gm/dL Hct 49.6 H (34.0-46.0) % Plt Count 197 (150-450) k/uL Comprehensive Metabolic Panel 08/08/21 Range/Units 11:23 Sodium 138 (137-145) mmol/L Potassium 4.4 (3.5-5.1) mmol/L Chloride 102 (98-107) mmol/L Carbon Dioxide 27 (22-30) mmol/L BUN 16 (7-17) mg/dL Creatinine 0.56 (0.52-1.04) mg/dL Glucose 117 H (74-99) mg/dL Calcium 9.7 (8.4-10.2) mg/dL AST 59 H (14-36) U/L ALT 29 (4-34) U/L Alkaline Phosphatase 100 (38-126) U/L Total Protein 7.4 (6.3-8.2) g/dL Albumin 4.5 (3.5-5.0) g/dL Current Medications Generic Name Dose Route Start Last Admin Trade Name Freq PRN Reason Stop Dose Admin Acetaminophen 650 mg 08/08/21 17:10 Acetaminophen Tab 325 Mg Tab PO Q6HR PRN Fever and/ or Pain Apixaban 2.5 mg 08/08/21 21:00 08/09/21 09:33 Apixaban 2.5 Mg Tablet PO 2.5 mg BID MART Administration Protocol Atorvastatin Calcium 10 mg 08/08/21 21:00 08/08/21 21:07 Atorvastatin 10 Mg Tab PO 10 mg HS MART Administration Dorzolamide HCl 1 drops 08/08/21 21:00 08/09/21 09:34 Dorzolamide Hcl 2% Drops 10 Ml Btl BOTH EYES 1 drops BID MART Administration Hydralazine HCl 25 mg 08/08/21 21:00 08/09/21 09:33 Hydralazine Hcl 25 Mg Tab PO 25 mg BID MART Administration Lisinopril 20 mg 08/09/21 09:00 08/09/21 09:33 Lisinopril 20 Mg Tab PO 20 mg DAILY MART Administration Metoprolol Tartrate 100 mg 08/08/21 17:30 08/09/21 09:33 Metoprolol Tartrate 50 Mg Tab PO 100 mg BID-W/MEALS MART Administration Intake and Output 08/08/21 08/09/21 08/09/21 22:59 06:59 14:59 Intake Total 900 Balance 900 Intake: Intake, IV Titration 900 Amount Sodium Chloride 0.9% 1, 900 000 ml @ 75 mls/hr IV . [id number] ONE Rx#:[id number] Other: Voiding Method Bedside Commode Diaper # Voids 4 08/08/21 11:23 08/08/21 11:23
--- NOTE | 2021-08-09 13:04 | P.PN ---
Subjective Progress Note Date: 08/09/21 Dictation on progress note and follow-up on the consult for medical management. Dictation date of service 08/09/[address] liz Patient seen [id number] and discussed with the daughter and the son and the patient. Patient did not seen yet Dr. Jered smith of the orthopedic surgeon. Patient seen Dr. Justina rao probably the cardiology and his PA dictated a note traffic monitor specialist ordered. Patient heart rate is still fast. However improved since admission. Refer to cardiology note. X-ray of the right knee indicating effusion which will be taking care by the orthopedic surgeon with the pain on palpation with ballottement. On exam: Conscious alert oriented and coughing and her son and daughter at bedside when I discussed with them the cough and the laryngitis stated that has been there since Monday and they did the [place] at the home testing and was negative requested to be done again with the PCR order written. Chest x-ray was done on admission didn't not indicate pneumonia but she had history of hyperinflation. On exam head was normocephalic atraumatic, pupil equal equal reactive, conjunctiva was pink sclera was nonicteric. Neck was supple however with the syncopal episode we ordered the carotid duplex study no results yet. Chest she has scattered rhonchi with the cough but the chest x-ray done yesterday was negative with the speech has been impaired with the laryngitis as well. Heart irregular irregularity with the atrial fibrillation. And EKG yesterday showed atrial flutter with RVR. Abdomen positive bowel sounds no tenderness. External Extremities right knee discomfort with bending with the x-ray indicating effusion. And she had the right elbow intra-articular fracture affecting also the ulna was displaced. Neurologically stable. Assessment: #1 right elbow fracture of the intra-articular and displaced, will be seen by Dr. Jered smith And they will do cast #2 she had atrial fibrillation flutter on anticoagulant and requests continued. Was rapid ventricular response seen by Dr. manuelito Aguirre #3 on is stable on her feet and wobbly with the recurrent falling attacks, probably need alf for time of rehabilitation's patiently she is right- handed. #4 hypertension currently controlled. #5 effusion of the right knee probably associated with the fall. Recommendations and plan: #1 traffic monitor specialist. Recommendation of the cardiology. #2 going for repair and cast of her right elbow #3 consultation with the clinical social worker and discharge planning for possible alf placement until able to heel. #4 PT and OT. #5 according to the cardiology recommendation regard of the heart to continue and clearance for discharge. Cardiology. Objective - Vital Signs Vital signs: Vital Signs Temp 98.3 F 08/09/21 12:09 Pulse 96 08/09/21 12:09 Resp 12 08/09/21 12:09 BP 104/65 08/09/21 12:09 Pulse Ox 93 L 08/09/21 12:09 FiO2 Intake & Output 08/08/21 08/09/21 08/09/21 18:59 06:59 18:59 Intake Total 900 Balance 900 Weight 48.5 kg Intake: Intake, IV Titration 900 Amount Sodium Chloride 0.9% 1, 900 000 ml @ 75 mls/hr IV . [id number] ONE Rx#:[id number] Other: Voiding Method Bedside Commode Bedside Commode Diaper Diaper # Voids 4 - Labs CBC & Chem 7: 08/08/21 11:23 08/08/21 11:23 Labs: Abnormal Lab Results - Last 24 Hours (Table) 08/08/21 Range/Units 11:52 Urine Protein Trace H (Negative) Urine Ketones 1+ H (Negative) Urine Blood Trace H (Negative) Urine RBC 20 H (0-5) /hpf Urine Bacteria Rare H (None) /hpf Urine Mucus Rare H (None) /hpf
[2021-08-09 15:13] VITALS: BMI 18.3
--- NOTE | 2021-08-09 18:33 | US ---
EXAMINATION TYPE: US carotid duplex BILAT DATE OF EXAM: 08/09/2021 COMPARISON: NONE CLINICAL HISTORY: 89-year-old female Syncopal episode recurrent. TECHNIQUE: Carotid duplex ultrasound examination. Indirect Doppler criteria is utilized. FINDINGS: EXAM MEASUREMENTS: RIGHT: Peak Systolic Velocity (PSV) cm/sec ----- Right CCA: 61.7 ----- Right ICA: 72.5 ----- Right ECA: 74.5 ICA/CCA ratio: 1.18 RIGHT: End Diastole cm/sec ----- Right CCA: 12.3 ----- Right ICA: 25.0 ----- Right ECA: 7.7 LEFT: Peak Systolic Velocity (PSV) cm/sec ----- Left CCA: 67.8 ----- Left ICA: 70.3 ----- Left ECA: 52.0 ICA/CCA ratio: 1.04 LEFT: End Diastole cm/sec ----- Left CCA: 17.5 ----- Left ICA: 23.4 ----- Left ECA: 5.1 VERTEBRALS (direction of flow): Right Vertebral: Antegrade Left Vertebral: Antegrade Rhythm: Normal No significant stenosis seen. IMPRESSION: No hemodynamically significant internal carotid artery stenosis on either side. Criteria for Assigning % of Stenosis / Diameter reduction (Estimation based on the indirect measurements of the internal carotid artery velocities (ICA PSV). 1. Normal (no stenosis)=ICA PSV < 125 cm/s: ratio < 2.0: ICA EDV<40 cm/s. 2. Less than 50% stenosis=ICA PSV < 125 cm/s: ratio < 2.0: ICA EDV<40 cm/s. 3. 50 to 69% stenosis=ICA PSV of 125 to 230 cm/s: ration 2.0 ? 4.0: ICA EDV 40-100 cm/s. 4. Greater than 70% stenosis to near occlusion= ICA PSV > 230 cm/s: ratio > 4.0: ICA EDV > 100 cm/s. 5. Near occlusion= ICA PSV velocities may be low or undetectable: variable ratio and ICA EDV. 6. Total occlusion=unable to detect flow.
[2021-08-09] MEDS: ATORVASTATIN 10 MG TAB PO SCH (20:36)
--- NOTE | 2021-08-09 20:55 | P.PN ---
Subjective Progress Note Date: 08/09/21 Principal diagnosis: Right olecranon fracture Patient is a pleasant 89 yo female seen at bedside today. We are following for her right olecranon fracture. She has also had right knee pain after her fall. She has been in long arm splint. She has no new complaints today. She denies numbness or other. Objective - Vital Signs Vital signs: Vital Signs Temp 98.3 F 08/09/21 12:09 Pulse 96 08/09/21 12:09 Resp 12 08/09/21 12:09 BP 104/65 08/09/21 12:09 Pulse Ox 93 L 08/09/21 12:09 FiO2 Intake & Output 08/08/21 08/09/21 08/09/21 18:59 06:59 18:59 Intake Total 900 Balance 900 Weight 48.5 kg Intake: Intake, IV Titration 900 Amount Sodium Chloride 0.9% 1, 900 000 ml @ 75 mls/hr IV . [id number] ONE Rx#:[id number] Other: Voiding Method Bedside Commode Bedside Commode Diaper Diaper # Voids 4 - Exam Inspection shows long arm splint to right upper extremity. The splint was reshma monique where it showed swelling and echymoses present at elbow as expected. Neurovascular status is intact throughout the right upper extremity with motor and sensation fully intact. 2+ radial pulse and less than 2 sec cap refill present. Inspection of right lower extremity shows mild effusion at right knee. No erythema. It is not hot to touch. It is tender about the knee. It appears ligamentously stable. There are no wounds. Pain with flexion to 90 degrees. She has full extension. Neurovascular status is intact throughout the lower extremity with motor and sensation fully intact. Calf is soft and nontender. 2+ dorsalis pedis pulse and less than 2 second cap refill is present. - Constitutional General appearance: Present: no acute distress - Labs CBC & Chem 7: 08/08/21 11:23 08/08/21 11:23 Labs: Abnormal Lab Results - Last 24 Hours (Table) 08/08/21 Range/Units 11:52 Urine Protein Trace H (Negative) Urine Ketones 1+ H (Negative) Urine Blood Trace H (Negative) Urine RBC 20 H (0-5) /hpf Urine Bacteria Rare H (None) /hpf Urine Mucus Rare H (None) /hpf - Imaging and Cardiology xrays of right knee show no fracture. There are degenerative changes seen Assessment and Plan (1) Effusion, right knee Narrative/Plan: Her splint was reapplied with padding and appropriate BEBE. I advised on continue elevation and applying ice to the right elbow and knee. Continue pain management, DVT prophylaxis and medical management. She may benefit from ECF placement. Will continue to follow. Current Visit: Yes Status: Acute Code(s): M25.461 - EFFUSION, RIGHT KNEE SNOMED Code(s): 806043132233670 (2) Fracture of olecranon process, right, closed Current Visit: Yes Status: Acute Code(s): S52.021A - DISP FX OF OLECRAN PRO W/O INTARTIC EXTN RIGHT ULNA, INIT SNOMED Code(s): 65816048 Time with Patient: Less than 30
[2021-08-10] MEDS: DORZOLAMIDE HCL 2% DROPS 10 ML BTL BOTH EYES SCH ×2 (09:06→20:59)
[2021-08-10] MEDS: METOPROLOL TARTRATE 50 MG TAB PO SCH ×2 (09:06→17:31)
[2021-08-10] MEDS: hydrALAZINE HCL 25 MG TAB PO SCH ×2 (09:06→20:59)
[2021-08-10] MEDS: lisinopriL 20 MG TAB PO SCH (09:06)
[2021-08-10] MEDS: APIXABAN 2.5 MG TABLET PO SCH ×2 (09:06→20:59)
--- NOTE | 2021-08-10 10:34 | P.PN ---
Subjective Progress Note Date: 08/10/21 Principal diagnosis: Right olecranon fracture. Right knee effusion. Degenerative arthritis right knee. This is an 89-year-old female who we are following regarding her right olecranon fracture and a right knee effusion. She is admitted for workup regarding her syncopal episodes and multiple falls. She is doing well from orthopedic standpoint. She has minimal knee pain. She has minimal elbow pain. Her splint was changed yesterday. Vital signs are stable. Objective - Vital Signs Vital signs: Vital Signs Temp 97.7 F 08/10/21 03:50 Pulse 109 H 08/10/21 03:50 Resp 16 08/10/21 03:50 BP 163/91 08/10/21 03:50 Pulse Ox 90 L 08/10/21 03:50 FiO2 Intake & Output 08/09/21 08/10/21 08/10/21 18:59 06:59 18:59 Intake Total 118 Balance 118 Weight 48.5 kg Intake: Oral 118 Other: Voiding Method Bedside Commode Diaper # Voids 3 3 1 # Bowel Movements 1 1 - Exam This is a pleasant 89-year-old female in no acute distress. She is alert and oriented to person at this time. Exam of the right upper extremity reveals a long-arm splint intact. She has full finger motion without difficulty or pain. Neurovascular status to upper extremity is intact. Exam of the lower extremities reveals 1-2+ effusion. No erythema or ecchymosis. She is able to flex the knee to 90 actively. She has full knee extension without difficulty. Neurovascular status to the lower extremity is intact. - Labs CBC & Chem 7: 08/08/21 11:23 08/08/21 11:23 Assessment and Plan (1) Fracture of olecranon process, right, closed Current Visit: Yes Status: Acute Code(s): S52.021A - DISP FX OF OLECRAN PRO W/O INTARTIC EXTN RIGHT ULNA, INIT SNOMED Code(s): 18740045 (2) Effusion, right knee Current Visit: Yes Status: Acute Code(s): M25.461 - EFFUSION, RIGHT KNEE SNOMED Code(s): 407471627052951 (3) Syncope Current Visit: Yes Status: Acute Code(s): R55 - SYNCOPE AND COLLAPSE SNOMED Code(s): 864188393 (4) History of atrial fibrillation Current Visit: Yes Status: Acute Code(s): Z86.79 - PERSONAL HISTORY OF OTHER DISEASES OF THE CIRCULATORY SYSTEM SNOMED Code(s): 676081338 Plan: The clinical findings are discussed with the patient and nursing staff. She is currently in a long-arm splint. We will transition to a long-arm cast at her office visit. We will see her back in one week.
--- NOTE | 2021-08-10 12:42 | P.PN ---
Subjective Progress Note Date: 08/10/21 This is a progress note Date of service 08/10/2021. Discussed with the patient and her daughter and her son. Discussed with Erica LO in regards of the discharge to skilled nursing facility because of her incompatibility to be living alone with the right hand dependence and a history of syncopal episode and recurrent fall, also and balance on her feet. Patient underwent carotid duplex study result was negative no hemodynamic significant stenosis. Patient seen by major sales associate and the cleared that up to be discharged and to follow-up as outpatient with the underlying history of atrial flutter/fi brillation and she is on an requests however she had on admission rapid ventricular response, currently her all her heart rate 109 regular and acceptable to them means of the machine pack assembler and they will be following her as outpatient and he cleared her for discharge. Orthopedic surgeon by [facility] cleared her for discharge as well. Patient under care attending of the orthopedic. From the PCP, reviewed her medication which is the same as it was as outpatient and she will be going to a skilled nursing with the same medication. If patient goes to medical [place] she will be under my care. If she goes to [facility] on the [place] they will have to choose a physician following her during her presence for rehab. And the patient should be followed by cardiology as well. With the examination: Temperature 97.7 F oral, heart rate 109 regular, respiratory rate 16/m normal nonlabored, her cold did 19 testing was not detected. Her blood pressure the last recorded 163/91 and pulse ox on room air was 90. Patient is conscious alert oriented and speech impediment. Head was normocephalic and atraumatic pupil was equal reactive conjunctiva was pink sclera was nonicteric the extraocular muscle movement is intact Neck was supple no JVD no thyromegaly no lymphadenopathy trachea midline. Carotid duplex study was negative Chest is clear with the occasional cough possible laryngitis versus postnasal discharge. Heart regular irregular irregularities with the chronic atrial fibrillation on anticoagulant and patient seen during her presence by cardiology Dr. Salgado. Cleared her for discharge Abdomen no tenderness and positive bowel sounds and extremities the soft cast readapt no heart cast so far no surgery done. And orthopedic cleared her for discharge to follow-up as outpatient. Right knee effusion not addressed by the PA or the orthopedic surgeon and they will be following that as outpatient apparently. Neurology stable general condition no lateralizing sign. Assessment: Frequent fall resulted in right elbow intra-articular fracture with the ulnar proximal and displacement Cardiac dysrhythmia with atrial flutter fibrillation on admission with the RVR documented by the EKG Seen by the cardiology with the for further follow-up as outpatient. Patient continued on her anticoagulation with her previous medication resume with no changes. Plan: Patient is cleared for discharge. The orthopedic surgeon In regard of medications no change no added medicine by cardiology and continue home medication I will follow the patient if admitted to medical [facility] only. For continuing care Patient to follow with the cardiology according to the note and orthopedic surgeon. Objective - Vital Signs Vital signs: Vital Signs Temp 97.7 F 08/10/21 03:50 Pulse 109 H 08/10/21 03:50 Resp 16 08/10/21 03:50 BP 163/91 08/10/21 03:50 Pulse Ox 90 L 08/10/21 03:50 FiO2 Intake & Output 08/09/21 08/10/21 08/10/21 18:59 06:59 18:59 Intake Total 118 Balance 118 Weight 48.5 kg Intake: Oral 118 Other: Voiding Method Bedside Commode Bedside Commode Diaper Diaper # Voids 3 3 1 # Bowel Movements 1 1 - Labs CBC & Chem 7: 08/08/21 11:23 08/08/21 11:23
[2021-08-10] MEDS: ATORVASTATIN 10 MG TAB PO SCH (20:59)
[2021-08-10 21:57] LABS: Appearance,Urine Clear (Clear); Bilirubin,Urine Negative (Negative); Blood,Urine Trace (Negative); Color,Urine Yellow; Glucose,Urine (UA) Negative (Negative); Ketones,Urine Negative (Negative); Leukocyte Esterase,Urine Negative (Negative); Nitrite,Urine Negative (Negative); PH, Urine 6.5 (5.0-8.0); Protein,Urine Negative (Negative); RBC,Urine 13 /hpf (0-5); Specific Gravity,Urine 1.013 (1.001-1.035); Squamous Epithelial Cell,Urine <1 /hpf (0-4); WBC,Urine <1 /hpf (0-5)
[2021-08-11] MEDS: METOPROLOL TARTRATE 50 MG TAB PO SCH ×2 (09:05→17:49)
[2021-08-11] MEDS: DORZOLAMIDE HCL 2% DROPS 10 ML BTL BOTH EYES SCH ×2 (09:06→20:17)
[2021-08-11] MEDS: APIXABAN 2.5 MG TABLET PO SCH ×2 (09:06→20:17)
[2021-08-11] MEDS: hydrALAZINE HCL 25 MG TAB PO SCH (09:06)
[2021-08-11] MEDS: lisinopriL 20 MG TAB PO SCH (09:06)
[2021-08-11] MEDS: hydrALAZINE HCL 50 MG TAB PO SCH (20:17)
[2021-08-11] MEDS: ATORVASTATIN 10 MG TAB PO SCH (20:17)
[2021-08-12] MEDS: lisinopriL 20 MG TAB PO SCH (09:12)
[2021-08-12] MEDS: APIXABAN 2.5 MG TABLET PO SCH (09:13)
[2021-08-12] MEDS: METOPROLOL TARTRATE 50 MG TAB PO SCH (09:13)
[2021-08-12] MEDS: DORZOLAMIDE HCL 2% DROPS 10 ML BTL BOTH EYES SCH (09:13)
[2021-08-12] MEDS: hydrALAZINE HCL 50 MG TAB PO SCH (09:13)
--- NOTE | 2021-08-12 09:35 | P.DS ---
Providers Date of admission: 08/08/21 13:53 Expected date of discharge: 08/12/21 Attending physician: Jacek Murcia Consults: 08/08/21 13:52 Consult Physician Urgent Consulting Provider: Jered Longoria Consult Reason/Comments: falls, fractures Do you want consulting provider notified?: Yes 08/11/21 10:43 Consult Physician Urgent Consulting Provider: Pako Horn Consult Reason/Comments: atrial flutter, ucntroled htn Do you want consulting provider notified?: Yes Primary care physician: Jacek Murcia - Discharge Diagnosis(es) (1) Fracture of olecranon process, right, closed Current Visit: Yes Status: Acute (2) Effusion, right knee Current Visit: Yes Status: Acute (3) Syncope Current Visit: Yes Status: Acute (4) History of atrial fibrillation Current Visit: Yes Status: Acute Hospital Course: This is a 89-year-old female who is brought to the emergency department today a fter falling in her flower bed and hitting her head on the side of the house and injuring her right elbow. On exam and x-ray in the emergency department she was found to have a right olecranon fracture. Secondary to her age and immobility it is recommended she be admitted for possible placement and workup for her atrial fibrillation and atrial flutter with RVR. She is admitted to our service with Dr. Murcia on consult per ER request. I did transfer attending to Dr. Murcia during her stay since there were no surgical indications and the patient was being admitted for placement and cardiac workup for her syncopal episodes. The patient also complained of right knee pain during her stay. Right knee x- rays were taken which revealed no acute fracture or bony abnormality. She does have moderate degenerative arthritis to the knee. The patient is discharged to inpatient rehabilitation on 08/12/2021 in stable condition. She is to follow-up in our office in 1 week to change the splint to a cast. Medical follow-up per Dr. Murcia. Please see med rec for accurate list of ddischarge medications. Patient Condition at Discharge: Stable Plan - Discharge Summary Discharge Rx Participant: Yes New Discharge Prescriptions: No Action Metoprolol Tartrate [Lopressor] 100 mg PO BID-W/MEALS Atorvastatin [Lipitor] 10 mg PO HS lisinopriL [Zestril] 20 mg PO DAILY hydrALAZINE HCL [Apresoline] 25 mg PO BID Dorzolamide 2% [Trusopt 2%] 1 drops BOTH EYES BID Apixaban [Eliquis] 2.5 mg PO BID Discharge Medication List Apixaban [Eliquis] 2.5 mg PO BID 08/08/21 [History] Atorvastatin [Lipitor] 10 mg PO HS 08/08/21 [History] Dorzolamide 2% [Trusopt 2%] 1 drops BOTH EYES BID 08/08/21 [History] Metoprolol Tartrate [Lopressor] 100 mg PO BID-W/MEALS 08/08/21 [History] hydrALAZINE HCL [Apresoline] 25 mg PO BID 08/08/21 [History] lisinopriL [Zestril] 20 mg PO DAILY 08/08/21 [History] Follow up Appointment(s)/Referral(s): Lala Valdez, [NON-STAFF] - As Needed Jered Longoria DO [Doctor of Osteopathic Medicine] - 1 Week Jacek Murcia MD [Primary Care Provider] - 1-2 days Activity/Diet/Wound Care/Special Instructions: maintain splint/sling keep clean and dry elevate arm ice to elbow 20-30 mins 3 x/ day take meds as directed f/u in office Discharge Disposition: HOME SELF-CARE
--- NOTE | 2021-08-12 12:02 | P.PN ---
Subjective Progress Note Date: 08/12/21 HISTORY OF PRESENT ILLNESS: This is a 89-year-old female with a past medical history significant for atrial fibrillation/flutter, hypertension, and hyperlipidemia. Patient follows in the office with Dr. Sands. We have been asked to see the patient in consultation for atrial fibrillation. Patient examined at the bedside. The patient presented to the hospital after experiencing a fall at home. She was working out in the flower bed and fell. She has been diagnosed with a right olecranon fracture. She has been evaluated by orthopedics and there is no plans for surgical intervention at this time. The patient's family is at the bedside and reports that the patient has had a few falls recently. The family members are unsure if these falls are all mechanical in nature or if they may have been secondary to a syncopal episode. The patient denies any chest pain or pressure. She denies shortness of breath. She denies dizziness or lightheadedness. * EKG reveals atrial flutter with a heart rate of 104 * Chest xray cardiomegaly and COPD. Correlate chronically. Cannot extrude a tiny nodule subcentimeter right upper lobe. * Laboratory data: WBC 13.2. Hemoglobin 16.2. Platelet count 197. Sodium 138. Potassium 4.4. BUN 16. Creatinine 0.56. Troponin negative 1. Creatinine kinase 485. * Current home cardiac medications include lisinopril 20 mg daily, metoprolol tartrate 100 mg twice a day, hydralazine 25 mg twice a day, Lipitor 10 mg at night, and Eliquis 2.5mg BID * Patient underwent echocardiogram in May 2021 at the office revealing ejection fraction 55%, trace aortic regurgitation mild mitral regurgitation, and moderate tricuspid regurgitation 08/12/2021 Cardiology was asked to reevaluate the patient for uncontrolled hypertension and atrial flutter. Patient examined this morning. She is sitting in the chair. She denies chest pain or pressure. She denies shortness of breath. Patient's blood pressures are currently controlled. Patient's heart rate on telemetry is in the 90s. PHYSICAL EXAM: VITAL SIGNS: Reviewed. GENERAL: Well-developed in no acute distress. HEENT: Head is normocephalic. Pupils are equal, round. Sclerae anicteric. Mucous membranes of the mouth are moist. Neck supple. No JVD or thyromegaly LUNGS: Respirations even and unlabored. Lungs essentially clear to auscultation bilaterally. HEART: Irregular rate and rhythm. S1 and S2 heard. ABDOMEN: Soft. Nondistended. Nontender. EXTREMITIES: Normal range of motion. No clubbing or cyanosis. Peripheral pulses intact. No lower extremity edema NEUROLOGIC: Awake and alert. Oriented x 3. ASSESSMENT: S/P Fall Right olecranon fracture Right knee effusion Persistent atrial fibrillation/typical atrial flutter with mild RVR Hypertension Hyperlipidemia PLAN: Patient is currently stable from a cardiac standpoint No medication adjustments per cardiology service We will sign off. Please reconsult if needed. Nurse practitioner note has been reviewed by physician. Signing provider agrees with the documented findings, assessment, and plan of care. Objective - Vital Signs Vital signs: Vital Signs Temp 98.2 F 08/12/21 04:22 Pulse 102 H 08/12/21 08:00 Resp 16 08/12/21 08:00 BP 142/88 08/12/21 04:22 Pulse Ox 94 L 08/12/21 04:22 FiO2 Intake & Output 08/11/21 08/12/21 08/12/21 18:59 06:59 18:59 Intake Total 1080 Balance 1080 Intake: Oral 1080 Other: Voiding Method Bedside Commode Bedside Commode Diaper Diaper # Voids 1 - Labs CBC & Chem 7: 08/08/21 11:23 08/08/21 11:23
[2021-08-12 15:34] VITALS: BP 133/78; PULSE 101; RESP 17; TEMP 97.5
--- NOTE | 2021-09-13 12:33 | EM ---
EVENT MONITOR Patient was monitored between the August 11 and September 01, 2021. The baseline rhythm revealed a sinus mechanism with normal conduction. There was 1 episode of what appears to be atrial fibrillation or atrial fibrillation tachycardia with variable conduction. Only 2 strips were available to review. MMODL / IJN: [id number] /
== END 2021-08-12 17:54 | disposition home or self-care (01) ==
LOC: EC 11:20 → INTOOBSV 13:53 → 4SSUR 13:53 → 5NMEDONC 14:27 → UNDODISIN 08-12 17:54
PROVIDERS: ADMIT Internal Medicine; ATTEND Internal Medicine
DX: S52.031A Displaced fracture of olecranon process with intraarticular extension of right ulna, initial encounter for closed fracture (principal); I48.19 Other persistent atrial fibrillation; I48.3 Typical atrial flutter; M17.11 Unilateral primary osteoarthritis, right knee; I45.2 Bifascicular block; R55 Syncope and collapse; E78.00 Pure hypercholesterolemia, unspecified; E78.5 Hyperlipidemia, unspecified; H91.90 Unspecified hearing loss, unspecified ear; I07.1 Rheumatic tricuspid insufficiency; I11.9 Hypertensive heart disease without heart failure; I44.4 Left anterior fascicular block; R47.9 Unspecified speech disturbances; G25.0 Essential tremor; W18.39XA Other fall on same level, initial encounter; E89.0 Postprocedural hypothyroidism; J44.9 Chronic obstructive pulmonary disease, unspecified; Z20.822 Contact with and (suspected) exposure to COVID-19; R29.6 Repeated falls; Y92.007 Garden or yard of unspecified non-institutional (private) residence as the place of occurrence of the external cause; Z98.890 Other specified postprocedural states; Z79.01 Long term (current) use of anticoagulants; Z79.899 Other long term (current) drug therapy; Z80.1 Family history of malignant neoplasm of trachea, bronchus and lung; Z82.49 Family history of ischemic heart disease and other diseases of the circulatory system; Z82.3 Family history of stroke; Z80.3 Family history of malignant neoplasm of breast
CPT/HCPCS: 96361 ×2; 29105; 96360; 99285; 36415; 93005; 93270; 97530 ×3; 97163; 97535 ×4; 97166; 97167; 80053; 82550; 83735; 84484; 85025; 85610; 85730; 81001 ×2; 87635; 73080; 73562; 71046; 93880; 72125; 70450; G0378 ×5

== ENCOUNTER 2021-11-03 12:28 | Inpatient (IN) | payer MEDICARE ==
[2021-11-03 15:02] LABS: Basophils # (A) 0.2 k/uL (0-0.2); Basophils % (A) 1 %; Eosinophils # (A) 0.1 k/uL (0-0.7); Eosinophils % (A) 1 %; HCT 52.4 % (34.0-46.0); HGB 16.4 gm/dL (11.4-16.0); Lymphocytes % (A) 13 %; MCH 31.8 pg (25.0-35.0); MCHC 31.3 g/dL (31.0-37.0); MCV 101.6 fL (80.0-100.0); Macrocytosis Slight; Mean Platelet Volume 7.9; Monocytes # (A) 0.4 k/uL (0-1.0); Monocytes % (A) 3 %; Neutrophils # (A) 12.3 k/uL (1.3-7.7); Neutrophils % (A) 81 %; Platelet Count 166 k/uL (150-450); RBC 5.16 m/uL (3.80-5.40); RDW 13.3 % (11.5-15.5); WBC 15.2 k/uL (3.8-10.6)
[2021-11-03 15:10] LABS: Potassium 4.5 mmol/L (3.5-5.1)
[2021-11-03 15:10] LABS: INR 1.1 (<1.2); Partial Thromboplastin Time 27.3 sec (22.0-30.0); Prothrombin Time 11.5 sec (9.0-12.0)
[2021-11-03 15:11] LABS: Calcium 10.5 mg/dL (8.4-10.2)
[2021-11-03] MEDS ORDERED: MORPHINE SULFATE 2 MG/ML SYRINGE IVP STA (15:17)
--- NOTE | 2021-11-03 15:26 | ED ---
General Adult HPI - General Chief complaint: Extremity Injury, Lower Stated complaint: lt hip fracture Time Seen by Provider: 11/03/21 15:00 Source: patient, RN notes reviewed, old records reviewed Mode of arrival: ambulatory Limitations: no limitations - History of Present Illness Initial comments: Patient is a 89-year-old female with past medical history remarkable for atrial flutter on Eliquis, hypertension, thyroid disorder who presents emergency Department complaining of a left hip fracture. Patient was walking with her walker yesterday when she fell sideways into a door and ended up on the ground. Uncertain if she hit her head. No LOC. No pain other than in her left hip when she tries to bear weight or move it. Was seen by her primary care physician and sent for x-rays today. Was sent here after x-ray results showed a subcapital fr acture of the patient's left hip. Was sent to the emergency department for further evaluation. Has previously seen Dr. Longoria for elbow injury. Patient has no other acute complaints at this time. Is not altered. Presents with family members.I evaluated the patient when she was placed in a room. - Related Data Home Medications Medication Instructions Recorded Confirmed Apixaban [Eliquis] 2.5 mg PO BID 08/08/21 11/03/21 Atorvastatin [Lipitor] 10 mg PO DAILY 08/08/21 11/03/21 Dorzolamide 2% [Trusopt 2%] 1 drops BOTH EYES BID 08/08/21 11/03/21 Metoprolol Tartrate [Lopressor] 100 mg PO BID 08/08/21 11/03/21 hydrALAZINE HCL [Apresoline] 25 mg PO BID 08/08/21 11/03/21 lisinopriL [Zestril] 20 mg PO DAILY 08/08/21 11/03/21 Acetaminophen [Tylenol Extra 500 mg PO QID PRN 11/03/21 11/03/21 Strength] Allergies Allergy/AdvReac Type Severity Reaction Status Date / Time No Known Allergies Allergy Verified 11/03/21 15:38 Review of Systems ROS Statement: Those systems with pertinent positive or pertinent negative responses have been documented in the HPI. Review of Systems: CONST: Denies fever EYES: Denies blurry vision ENT: Denies nasal congestion C/V: Denies Chest pain RESP: Denies shortness of breath GI: Denies abdominal pain : Denies dysuria SKIN: Denies rash. MSK: Endorses left hip pain NEURO: Denies headache ROS Other: All systems not noted in ROS Statement are negative. Past Medical History Past Medical History: Atrial Flutter, Hypertension, Thyroid Disorder Additional Past Medical History / Comment(s): essential tremmors, high chol esterol. History of Any Multi-Drug Resistant Organisms: None Reported Additional Past Surgical History / Comment(s): thyroidectomy Past Psychological History: No Psychological Hx Reported Smoking Status: Never smoker Past Alcohol Use History: None Reported Past Drug Use History: None Reported - Past Family History Mother Additional Family Medical History / Comment(s): Breast cancer, Lung cancer Father Family Medical History: CVA/TIA, Myocardial Infarction ([place]) General Exam - General Exam Comments Initial Comments: General: Appears in no acute distress. HEAD: Normal with no signs of head trauma. EYES: PERRLA, EOMI, conjunctiva normal, no discharge. ENT: Hearing grossly intact, normal oropharynx. RESPIRATORY: Clear breath sounds bilaterally. No wheezes, rales, or rhonchi. C/V: S1 and S2 auscultated. Peripheral pulses 2+ and intact throughout. Neurovascular intact in the distal left lower extremity. ABD: Abd is soft, nontender, nondistended EXT: Reduced range of motion the left hip secondary to pain. No midline spinal tenderness to palpation. Pelvis appears stable. Neurovascular intact distal to the left hip. SKIN: No rashes or lesions observed on exposed skin. NEURO: Alert and oriented 4. No focal deficits. Limitations: no limitations Course Vital Signs 11/03/21 12:53 Temperature 97.6 F Pulse Rate 104 H Respiratory 20 Rate Blood Pressure 118/79 O2 Sat by Pulse 96 Oximetry Medical Decision Making - Medical Decision Making The patient's presentation and physical exam, I'm concerned for a left hip frac ture. X-ray was already obtained. Due to the fall on thinners, I did recommend we obtain a CT brain at this time and they were in agreement with this plan. We will also obtain basic presurgical laboratory studies. Patient will be administered morphine for pain control. Patient and family were in agreement this plan.Vital signs are within normal limits. Laboratory studies are remarkable for mild leukocytosis of 15.2 which is likely reactive. She also appears dehydrated as her hemoglobin was elevated. She'll be given some IV fluids. Remainder the labs are unremarkable. CT brain showed no signs of acute intracranial process. There are chronic findings of a calcified meningioma which is unchanged. Accepted the patient as was family. Patient will be admitted to the hospital. I spoke with Dr. Longoria who accepted the admission. I consulted the patient's PCP, Dr. Murcia for for medical management who agreed to the consult. I restarted home medications. Patient will be admitted for surgery pending clearance. Dr. Longoria's MLP contacted me and requested a obtain a CT left hip which was ordered. Patient was admitted in stable condition. - Lab Data Result diagrams: 11/03/21 14:43 11/03/21 14:58 Lab Results 11/03/21 11/03/21 11/03/21 Range/Units 14:43 14:43 14:52 WBC 15.2 H (3.8-10.6) k/uL RBC 5.16 (3.80-5.40) m/uL Hgb 16.4 H (11.4-16.0) gm/dL Hct 52.4 H (34.0-46.0) % MCV 101.6 H (80.0-100.0) fL MCH 31.8 (25.0-35.0) pg MCHC 31.3 (31.0-37.0) g/dL RDW 13.3 (11.5-15.5) % Plt Count 166 (150-450) k/uL MPV 7.9 Neutrophils % 81 % Lymphocytes % 13 % Monocytes % 3 % Eosinophils % 1 % Basophils % 1 % Neutrophils # 12.3 H (1.3-7.7) k/uL Lymphocytes # 2.0 (1.0-4.8) k/uL Monocytes # 0.4 (0-1.0) k/uL Eosinophils # 0.1 (0-0.7) k/uL Basophils # 0.2 (0-0.2) k/uL Macrocytosis Slight PT 11.5 (9.0-12.0) sec INR 1.1 (<1.2) APTT 27.3 (22.0-30.0) sec Sodium (137-145) mmol/L Potassium (3.5-5.1) mmol/L Chloride (98-107) mmol/L Carbon Dioxide (22-30) mmol/L Anion Gap mmol/L BUN (7-17) mg/dL Creatinine (0.52-1.04) mg/dL Est GFR (CKD-EPI)AfAm (>60 ml/min/1.73 sqM) Est GFR (CKD-EPI)NonAf (>60 ml/min/1.73 sqM) Glucose (74-99) mg/dL Calcium (8.4-10.2) mg/dL Blood Type A Positive Blood Type Confirm Blood Type Recheck No Previous Record Bld Type Recheck Status CABO Indicated Spec Expiration Date 11/06/2021 - 235111/03/21 11/03/21 Range/Units 14:53 14:58 WBC (3.8-10.6) k/uL RBC (3.80-5.40) m/uL Hgb (11.4-16.0) gm/dL Hct (34.0-46.0) % MCV (80.0-100.0) fL MCH (25.0-35.0) pg MCHC (31.0-37.0) g/dL RDW (11.5-15.5) % Plt Count (150-450) k/uL MPV Neutrophils % % Lymphocytes % % Monocytes % % Eosinophils % % Basophils % % Neutrophils # (1.3-7.7) k/uL Lymphocytes # (1.0-4.8) k/uL Monocytes # (0-1.0) k/uL Eosinophils # (0-0.7) k/uL Basophils # (0-0.2) k/uL Macrocytosis PT (9.0-12.0) sec INR (<1.2) APTT (22.0-30.0) sec Sodium 138 (137-145) mmol/L Potassium 4.5 (3.5-5.1) mmol/L Chloride 100 (98-107) mmol/L Carbon Dioxide 26 (22-30) mmol/L Anion Gap 12 mmol/L BUN 22 H (7-17) mg/dL Creatinine 0.99 (0.52-1.04) mg/dL Est GFR (CKD-EPI)AfAm 59 (>60 ml/min/1.73 sqM) Est GFR (CKD-EPI)NonAf 51 (>60 ml/min/1.73 sqM) Glucose 125 H (74-99) mg/dL Calcium 10.5 H (8.4-10.2) mg/dL Blood Type Blood Type Confirm A Positive Blood Type Recheck Bld Type Recheck Status Spec Expiration Date Disposition Clinical Impression: Hip fracture, left, History of atrial flutter Disposition: ADMITTED IP TO THIS HOSP Condition: Stable Referrals: Jacek Murcia MD [Primary Care Provider] - 1-2 days Time of Disposition: 16:00
--- NOTE | 2021-11-03 15:52 | CT ---
EXAMINATION TYPE: CT brain wo con DATE OF EXAM: 11/03/2021 COMPARISON: 08/08/2021 INDICATION: fall DLP: 1111.4 mGycm, Automated exposure control for dose reduction was used. CONTRAST: None CT of the brain is performed utilizing 3 mm thick sections through the posterior fossa and 3 mm thick sections through the remaining calvarium. Study is performed within 24 hours of arrival to the hosp [facility]. No abnormal hyperdensity is present to suggest an acute intracranial hemorrhage. There is calcification along the right posterior parietal region likely related to a calcified mening ioma. Some mass effect on the extra-axial brain is evident. No density change within the brain is bill dent. No acute infarcts are evident. There is some mild periventricular white matter hypodensity, likely on the basis of chronic white matter ischemic changes. Ventricles and sulci are prominent for the patient age. Paranasal sinuses and mastoid air cells within the [id number] are clear. IMPRESSIONS: 1. Atrophy with chronic appearing periventricular white matter ischemic changes. 2. A calcified meningioma may be in the posterior right parietal region was present previously withou t change. 3. Follow-up MRI can be performed as clinically indicated
[2021-11-03] MEDS ORDERED: ACETAMINOPHEN TAB 325 MG TAB PO PRN (16:03)
[2021-11-03] MEDS ORDERED: NALOXONE 0.4 MG/ML 1 ML VIAL IV PRN (16:03)
[2021-11-03] MEDS ORDERED: SODIUM CHLORIDE 0.9% 1,000 ML IV STA (16:08)
--- NOTE | 2021-11-03 16:51 | P.HPOR ---
History of Present Illness H&P Date: 11/03/21 Chief Complaint: Left hip pain Patient is a 89-year-old female with past medical history remarkable for atrial flutter on Eliquis, hypertension, thyroid disorder who presents emergency Department complaining of a left hip fracture. Patient was walking with her walker yesterday when she fell sideways into a door and ended up on the ground. Uncertain if she hit her head. No LOC. No pain other than in her left hip when she tries to bear weight or move it. Was seen by her primary care physician and sent for x-rays today. Was sent here after x-ray results showed a subcapital fracture of the patient's left hip. Was sent to the emergency department for further evaluation. Has previously seen Dr. Longoria for elbow injury. Patient has no other acute complaints at this time. We are consulted for orthopedic evaluation and surgical intervention. Past Medical History Past Medical History: Atrial Flutter, Hypertension, Thyroid Disorder Additional Past Medical History / Comment(s): essential tremmors, high cholesterol. History of Any Multi-Drug Resistant Organisms: None Reported Additional Past Surgical History / Comment(s): thyroidectomy Past Psychological History: No Psychological Hx Reported Smoking Status: Never smoker Past Alcohol Use History: None Reported Past Drug Use History: None Reported - Past Family History Mother Additional Family Medical History / Comment(s): Breast cancer, Lung cancer Father Family Medical History: CVA/TIA, Myocardial Infarction ([place]) Medications and Allergies Home Medications Medication Instructions Recorded Confirmed Type Apixaban [Eliquis] 2.5 mg PO BID 08/08/21 11/03/21 History Atorvastatin [Lipitor] 10 mg PO DAILY 08/08/21 11/03/21 History Dorzolamide 2% [Trusopt 2%] 1 drops BOTH EYES BID 08/08/21 11/03/21 History Metoprolol Tartrate [Lopressor] 100 mg PO BID 08/08/21 11/03/21 History hydrALAZINE HCL [Apresoline] 25 mg PO BID 08/08/21 11/03/21 History lisinopriL [Zestril] 20 mg PO DAILY 08/08/21 11/03/21 History Acetaminophen [Tylenol Extra 500 mg PO QID PRN 11/03/21 11/03/21 History Strength] Allergies Allergy/AdvReac Type Severity Reaction Status Date / Time No Known Allergies Allergy Verified 11/03/21 15:38 Physical Examination This is a pleasant 89-year-old female in no acute distress. She is alert and oriented 3. Family is present at bedside. Exam of the head neck reveal no obvious deformity. She has full cervical spine motion without difficulty or pain. No pain with palpation about the cervical spine or paraspinal musculature. Exam of the upper extremities reveals no acute abnormality. She has fairly good shoulder, elbow, wrist and finger motion bilaterally. There is mild stiffness to the right elbow secondary to remote injury. Exam of the lower extremities reveals no obvious deformity. There is no obvious shortening noted. There is pain in the hip with any motion of the left lower extremity She has full foot and ankle motion bilaterally. Neurovascular status to the lower extremities intact. Results X-rays and CT of the left hip and pelvis reveal an impacted femoral neck fracture. No other fractures are identified. Cranial CT is pending. - Labs Labs: Abnormal Lab Results - Last 24 Hours (Table) 11/03/21 11/03/21 Range/Units 14:43 14:58 WBC 15.2 H (3.8-10.6) k/uL Hgb 16.4 H (11.4-16.0) gm/dL Hct 52.4 H (34.0-46.0) % MCV 101.6 H (80.0-100.0) fL Neutrophils # 12.3 H (1.3-7.7) k/uL BUN 22 H (7-17) mg/dL Glucose 125 H (74-99) mg/dL Calcium 10.5 H (8.4-10.2) mg/dL H & H 11/03/21 Range/Units 14:43 Hgb 16.4 H (11.4-16.0) gm/dL Hct 52.4 H (34.0-46.0) % Coagulation 11/03/21 Range/Units 14:43 INR 1.1 (<1.2) Result Diagrams: 11/03/21 14:43 11/03/21 14:58 Assessment and Plan (1) Hip fracture, left Current Visit: Yes Status: Acute Code(s): S72.002A - FRACTURE OF UNSP PART OF NECK OF LEFT FEMUR, INIT SNOMED Code(s): 463290168 (2) Fall Current Visit: No Status: Acute Code(s): W19.XXXA - UNSPECIFIED FALL, INITIAL ENCOUNTER SNOMED Code(s): 6827916 (3) History of atrial fibrillation Current Visit: No Status: Acute Code(s): Z86.79 - PERSONAL HISTORY OF OTHER DISEASES OF THE CIRCULATORY SYSTEM SNOMED Code(s): 789870458 Plan: The clinical and x-ray findings are discussed with the patient and her family. It is recommended that she undergo hemiarthroplasty of the left hip. Dr. Murcia is consulted for presurgical evaluation and medical management. We will hold her Eliquis. We have tentatively scheduled surgery for tomorrow at noon. We discussed the likely possibility of transfer to inpatient rehab postoperatively. After discussion and consideration the patient and family elects proceed with hemiarthroplasty of the left hip.
--- NOTE | 2021-11-03 17:18 | CT ---
EXAMINATION TYPE: CT hip LT wo con DATE OF EXAM: 11/03/2021 COMPARISON: None HISTORY: left hip pain, fall CT DLP: 314.3 mGycm Automated exposure control for dose reduction was used. images obtained from the mid ileum to the mid shaft of the femur with no contrast. There is slightly impacted acute subcapital fracture of the left femur. There is minor spurring at th e greater trochanter of the left femur. The acetabulum is intact. There is osteopenia. There is spurr ing at the pubic symphysis. Proximal femoral shaft is intact. IMPRESSION: Acute slightly impacted subcapital fracture left femur. No dislocation.
[2021-11-03 18:18] LABS: Magnesium 2.1 mg/dL (1.6-2.3)
[2021-11-03 18:20] LABS: Ionized Calcium 5.4 mg/dL (4.5-5.3)
--- NOTE | 2021-11-03 18:35 | P.CONS ---
History of Present Illness - Reason for Consult Consult date: 11/03/21 (Acute impacted supple With all fraction of the left femur) Requesting physician: Jered Longoria - Chief Complaint Fell down at [facility] with the using of the walker landed on her left - History of Present Illness Medical consult Date of service 11/[address]Elsafy Riddle [facility] Chief complaint: Patient fell down at [facility] where she left using her walker landed on her left side resulted in fracture of the left hip with acute soft Without impacted fracture of the left femur Roberto Jessica call the office and x-ray was ordered at [facility], X-ray department called me with the result of fracture of the left hip soft At all. Subsequently patient transferred to emergency room for evaluation and orthopedic care. Patient seen by Cynthia nurse practitioner/physician special education teaching assistant and subsequently called me to see the patient for medical management Patient has been feeling well living at [facility] History of atrial fibrillation/flutter seen by cardiology on anticoagulation with and across. And she was stable Past medical history: #1 she had tremors essential #2 status post parathyroid adenoma resected by Dr. Maira Gannon #3 history of hyperparathyroidism primary in the past. And associated with osteoporosis. #4 history of right arm fracture treated by Dr. Jered maldonado in the past with Sling no surgical intervention done. #5 history of hypertension #6 hyperlipidemia #7 glaucoma #8 chronic obstructive pulmonary disease #9 hypothyroidism #10 history of right knee effusion in the past #11 history of muscle weakness #12 history of admission to [facility] for rehabilitation after her fracture of the right arm. Medication: Tylenol 500 mg every 6 hours when necessary Lisinopril 20 mg once a day in a.m. Metoprolol tartrate 100 mg twice a day Atorvastatin 10 mg daily at bedtime And Eliqis 2.5 mg twice a day. ALLERGY unknown No smoking no alcohol intake. Review of system Patient had no other complaint except fell down with using the walker on her left side associated with the acute supple Without impacted fracture of the left. On examination: Patient seen in [id number] in room exam 29 and her son and her daughter at bedside and discussed with the patient and her daughter and the son. And they understand the process and Dr. Jered nickerson will be seeing her tomorrow and the physician special education teaching assistant Cynthia saw her today. And withheld the requests for the surgery tomorrow Head was normocephalic and atraumatic pupil was equal reactive oropharynx was negative Neck was supple she had murmur with the underlying cardiomegaly however the heart on this exam is regular we will obtain EKG with a history of atrial fibrillation. Patient has been seen in the past by DrKimberly cardiology Dr. Hope with the underlying ejection fraction 55% in her a lot last echo done on 05/24/2021. With the right atrium severely dilated, mild mitral regurg and aortic valve trileaflet and mildly calcified trace aortic regurg, moderate tricuspid regurg and moderately increased pulmonary artery systolic pressure PE ASP 51 mmHg and she had as well severe pulmonary regurg mutation according to Dr. Herminia WHITT a assistant child care teacher at that time her blood pressure was 132/84 and today her blood pressure is down to 110 systolic we will be with helping the hydralazine. Chest is clear to auscultation percussion and the abdomen soft positive bowel sounds no tenderness and extremities she had left hip fracture with pain mild to moderate long as she is stable she is comfortable. No edema of the lower extremities and positive pulses bilateral on the dorsalis pedis posterior tibial and popliteal. Assessment: #1 patient stable general condition for surgical intervention #2 obtaining the parathyroid hormone, calcium, magnesium which was not done in the ER. Her electrolytes within normal limits #3 leukocytosis associated with acute fracture and the stress repeat the lab in the morning. #4 obtaining EKG to assess the patient. Fibrillation/flutter and her heart rate 104 with underlying mild tachycardia #4 and the main reason for admission is left to have acutely impacted subcapital left femur fracture and the attending is Dr. Jered alvarez Plan: #1 EKG #2 laboratories #3 change IV to D5 half normal saline review the lab tomorrow and patient will be going for surgery tomorrow hopefully no fourth her medical problems Past Medical History Past Medical History: Atrial Flutter, Hypertension, Thyroid Disorder Additional Past Medical History / Comment(s): essential tremmors, high cholesterol. History of Any Multi-Drug Resistant Organisms: None Reported Additional Past Surgical History / Comment(s): thyroidectomy Past Psychological History: No Psychological Hx Reported Smoking Status: Never smoker Past Alcohol Use History: None Reported Past Drug Use History: None Reported - Past Family History Mother Additional Family Medical History / Comment(s): Breast cancer, Lung cancer Father Family Medical History: CVA/TIA, Myocardial Infarction ([place]) Medications and Allergies Home Medications Medication Instructions Recorded Confirmed Type Apixaban [Eliquis] 2.5 mg PO BID 08/08/21 11/03/21 History Atorvastatin [Lipitor] 10 mg PO DAILY 08/08/21 11/03/21 History Dorzolamide 2% [Trusopt 2%] 1 drops BOTH EYES BID 08/08/21 11/03/21 History Metoprolol Tartrate [Lopressor] 100 mg PO BID 08/08/21 11/03/21 History hydrALAZINE HCL [Apresoline] 25 mg PO BID 08/08/21 11/03/21 History lisinopriL [Zestril] 20 mg PO DAILY 08/08/21 11/03/21 History Acetaminophen [Tylenol Extra 500 mg PO QID PRN 11/03/21 11/03/21 History Strength] Allergies Allergy/AdvReac Type Severity Reaction Status Date / Time No Known Allergies Allergy Verified 11/03/21 15:38 Physical Exam Vitals: Vital Signs Temp Pulse Resp BP Pulse Ox 11/03/21 12:53 97.6 F 104 H 20 118/79 96 Intake and Output 11/03/21 11/03/21 11/03/21 06:59 14:59 22:59 Other: Weight 45.359 kg Results CBC & Chem 7: 11/03/21 14:43 11/03/21 14:58 Labs: Abnormal Lab Results - Last 24 Hours (Table) 11/03/21 11/03/21 Range/Units 14:43 14:58 WBC 15.2 H (3.8-10.6) k/uL Hgb 16.4 H (11.4-16.0) gm/dL Hct 52.4 H (34.0-46.0) % MCV 101.6 H (80.0-100.0) fL Neutrophils # 12.3 H (1.3-7.7) k/uL BUN 22 H (7-17) mg/dL Glucose 125 H (74-99) mg/dL Calcium 10.5 H (8.4-10.2) mg/dL
[2021-11-03] MEDS ORDERED: hydrALAZINE HCL 25 MG TAB PO SCH (21:00)
[2021-11-03] MEDS ORDERED: APIXABAN 2.5 MG TABLET PO SCH (21:00)
[2021-11-03] MEDS: DEXTROSE 5%-0.45% NACL 1,000 ML IV SCH (21:14)
[2021-11-03] MEDS: METOPROLOL TARTRATE 50 MG TAB PO SCH (21:14)
[2021-11-04] MEDS: DORZOLAMIDE HCL 2% DROPS 10 ML BTL BOTH EYES SCH ×3 (02:40→21:40)
[2021-11-04] MEDS: METOPROLOL TARTRATE 50 MG TAB PO SCH ×2 (08:56→21:39)
[2021-11-04] MEDS: ATORVASTATIN 10 MG TAB PO SCH (09:05)
[2021-11-04] MEDS: lisinopriL 20 MG TAB PO SCH (09:05)
[2021-11-04] MEDS ORDERED: LACTATED RINGERS 1,000 ML IV ONE (10:15)
[2021-11-04] MEDS ORDERED: ONDANSETRON 4 MG/2 ML VIAL IVP PRN (10:53)
[2021-11-04] MEDS ORDERED: MAGNESIUM HYDROXIDE 2,400 MG/10 ML CUP PO PRN (10:53)
[2021-11-04] MEDS ORDERED: NALOXONE 0.4 MG/ML 1 ML VIAL IV PRN (10:53)
[2021-11-04] MEDS ORDERED: HYDROmorphone 0.5 MG/0.5 ML SYRINGE IVP PRN ×3 (10:53)
[2021-11-04] MEDS ORDERED: traMADol 50 MG TAB PO PRN (10:56)
[2021-11-04] MEDS ORDERED: SUCCINYLCHOLINE CHLORIDE 200 MG/10 ML VIAL IV ONE (10:58)
[2021-11-04] MEDS ORDERED: PROPOFOL 10 MG/ML 20 ML VIAL IV ONE (10:58)
[2021-11-04] MEDS ORDERED: LIDOCAINE 2% INJ 20 MG/ML (2 ML VIAL) ONE (10:58)
[2021-11-04] MEDS ORDERED: ceFAZolin 1,000 MG VIAL ONE (10:58)
[2021-11-04] MEDS ORDERED: fentaNYL (PF) 50 MCG/ML 2 ML AMP ONE (10:58)
[2021-11-04 11:11] LABS: Basophils # (A) 0.06 X 10*3/uL (0.00-0.10); Basophils % (A) 0.5 %; Eosinophils % (A) 1.5 %; HCT 44.9 % (37.2-46.3); HGB 14.5 g/dL (12.0-15.0); Immature Grans, Automated 0.5 %; Lymphocytes # (A) 2.25 X 10*3/uL (0.90-5.00); Lymphocytes % (A) 16.9 %; MCH 32.5 pg (27.0-32.0); MCHC 32.3 g/dL (32.0-37.0); MCV 100.7 fL (80.0-97.0); Mean Platelet Volume 11.7 fL (9.5-12.2); Monocytes # (A) 0.87 X 10*3/uL (0.20-1.00); Monocytes % (A) 6.5 %; NRBC Per 100 WBC 0 /100 WBCS (0.0-0.0); Neutrophils # (A) 9.85 X 10*3/uL (1.80-7.70); Neutrophils % (A) 74.1 %; Platelet Count 159 X 10*3/uL (140-440); RBC 4.46 X 10*6/uL (4.10-5.20); WBC 13.29 X 10*3/uL (4.50-10.00)
[2021-11-04 11:25] LABS: African American GFR (CKD) 75.8 (60.0-200.0); Anion Gap 11.2 mmol/L (10.00-18.00); BUN/Creat Ratio 28.13 Ratio (12.00-20.00); Blood Urea Nitrogen 22.5 mg/dL (9.0-27.0); Calcium 9.6 mg/dL (8.7-10.3); Carbon Dioxide 23.8 mmol/L (20.0-27.5); Non-African American GFR(CKD) 65.4 (60.0-200.0); Potassium 4.2 mmol/L (3.5-5.5)
--- NOTE | 2021-11-04 11:53 | P.OP ---
Date of Procedure: 11/04/21 Preoperative Diagnosis: Subcapital fracture left hip Postoperative Diagnosis: Subcapital fracture left hip Procedure(s) Performed: Left hip hemiarthroplasty Implants: Fonseca and nephew Polarstem size 4 standard collar Fonseca & Nephew tandem unipolar, 43 mm Fonseca & Nephew tandem unipolar 12/14 taper sleeve, -3 mm All components were press-fit. Anesthesia: GETA Surgeon: Jered Longoria Marketing Mgr #1: Екатерина Zhou Estimated Blood Loss (ml): 50 Pathology: other (Femoral head) Condition: stable Disposition: PACU Indications for Procedure: This is an 89-year-old female that sustained a ground-level fall. She was diagnosed with an impacted subcapital fracture of her left hip. After discussing the surgical nonsurgical treatment options with her and her family at length recommended a left hip hemiarthroplasty and informed consent was obtained. Operative Findings: The operative findings are consistent with an impacted left subcapital hip fracture Description of Procedure: Patient was seen and evaluated in the preoperative area, consent was reviewed and the operative site was marked with a skin marker. Patient was then brought to the operating room and given 2 g of Ancef intravenously. A spinal anesthetic was administered by the anesthesia department. Patient was then placed in a lateral decubitus position and held with a Montral hip positioner. The bony prominences were well-padded and an axillary roll was placed. The hip was then prepped and draped in the usual sterile fashion. A universal timeout was then performed which confirmed the patient's name, surgical site, ALLERGIES, and procedure. A standard anterolateral approach the hip was performed. Skin and subcutaneous tissues were sharply incised with an incision centered over the tip of the greater trochanter. The incision was carefully dissected down to the fascia. The fascia was then split in line with skin incision and a Charnley retractor was gently placed. The abductors were then identified, and the anterior one third of the abductors were released off the trochanter and one large sleeve. The fracture hematoma was evacuated and the proximal femur was exposed by exte rnally rotating the femur. The fracture site was readily visualized. Next, using an osteotomy guide, the proximal femur was osteotomized at the appropriate level of the above the lesser trochanter. This bone was then removed. Attention was then turned to the femoral head. Using a corkscrew, the femoral head was removed from the acetabulum without incident. The acetabulum was inspected, and found to have no significant arthrosis. Femoral head was then measured. Attention was then redirected to the femur. Proximal femur was re-exposed and a box osteotome was used to lateralize the proximal femur. A pet store merchandiser was then used to locate the femoral canal. Sequential broaching was then performed to the appropriate size. The calcar was then planed and trial head and neck were placed. The hip was then gently reduced. Leg lengths were checked and found to be equal. Hip was then taken through a full range of motion was stable throughout. The hip was then gently dislocated with the aid of a bone hook. The trial head and neck were then removed. The femoral broach was then inspected and found to have a secure fit. The broach was then removed. The hip was then copiously irrigated with antibiotic solution with a pulse lavage. Components were then opened and the femoral stem was then impacted into the proximal femur. The trunnion was cleaned and dried, and the femoral head and neck were then impacted. Hip was again gently reduced. Again leg lengths were checked and found to be equal, and the hip was taken through a full range of motion and found to be stable. The hip was again irrigated with pulsatile lavage, then followed by the Irrrisept solution. The abductors were then repaired through drill holes to the bone to the greater trochanter, utilizing #5 Ethibond suture. Next the fascia was repaired with #2 strata fix suture. The subcutaneous tissue was then repaired with 3-0 Vicryl. The subcuticular tissue was then repaired with 3-0 strata fix suture. Skin was then closed with Exofin skin glue. A sterile dressing was then applied and the patient was transported to the recovery room in stable condition. Marketing Mgr [employer] Rust was required due to the complexity of surgery the need for skilled household personal assistant. She assisted with positioning the patient, draping the patient, retraction during the surgery, and closure of the wound.
[2021-11-04] MEDS: hydrALAZINE HCL 25 MG TAB PO SCH ×2 (12:03→21:39)
[2021-11-04 14:18] VITALS: BMI 18.3
--- NOTE | 2021-11-04 15:37 | XR ---
EXAMINATION TYPE: XR Hip Limited LT DATE OF EXAM: 11/04/2021 CLINICAL HISTORY: Left hip impacted fracture. TECHNIQUE: Single AP portable view of left hip is obtained immediately postoperatively. COMPARISON: CT left hip from yesterday. FINDINGS: Metallic hardware from total left hip arthroplasty is seen and appears satisfactory in alig nment and position. There is evidence of recent surgery with subcutaneous gas noted laterally. IMPRESSION: Metallic hardware from left hip arthroplasty is satisfactory in position.
[2021-11-04] MEDS: SODIUM CHLORIDE 0.9% 1,000 ML IV SCH (16:40)
[2021-11-04] MEDS: MORPHINE SULFATE 4 MG/ML SYRINGE IV PRN (17:52)
[2021-11-04] MEDS: SENNOSIDES-DOCUSATE SODIUM 1 EACH TAB PO SCH (21:38)
[2021-11-04] MEDS: DEXTROSE 5%-0.45% NACL 1,000 ML IV SCH (21:49)
[2021-11-05] MEDS: SODIUM CHLORIDE 0.9% 1,000 ML IV SCH ×2 (05:35→22:05)
[2021-11-05 08:55] LABS: Basophils # (A) 0.02 X 10*3/uL (0.00-0.10); Basophils % (A) 0.1 %; Eosinophils # (A) 0.04 X 10*3/uL (0.04-0.35); Eosinophils % (A) 0.3 %; HCT 41.2 % (37.2-46.3); HGB 13.1 g/dL (12.0-15.0); Immature Grans, Automated 0.5 %; Lymphocytes # (A) 1.76 X 10*3/uL (0.90-5.00); MCH 31.9 pg (27.0-32.0); MCHC 31.8 g/dL (32.0-37.0); MCV 100.2 fL (80.0-97.0); Mean Platelet Volume 11.5 fL (9.5-12.2); Monocytes # (A) 1.23 X 10*3/uL (0.20-1.00); Monocytes % (A) 9.1 %; NRBC Per 100 WBC 0 /100 WBCS (0.0-0.0); Neutrophils # (A) 10.47 X 10*3/uL (1.80-7.70); Platelet Count 142 X 10*3/uL (140-440); RBC 4.11 X 10*6/uL (4.10-5.20); RDW 13.5 % (11.5-14.5); WBC 13.59 X 10*3/uL (4.50-10.00)
[2021-11-05] MEDS: ATORVASTATIN 10 MG TAB PO SCH (09:05)
[2021-11-05] MEDS: APIXABAN 2.5 MG TABLET PO SCH ×2 (09:06→22:06)
[2021-11-05] MEDS: lisinopriL 20 MG TAB PO SCH (09:07)
[2021-11-05] MEDS: METOPROLOL TARTRATE 50 MG TAB PO SCH ×2 (09:07→22:06)
[2021-11-05] MEDS: hydrALAZINE HCL 25 MG TAB PO SCH ×2 (09:07→22:06)
[2021-11-05] MEDS: DORZOLAMIDE HCL 2% DROPS 10 ML BTL BOTH EYES SCH ×2 (09:08→22:06)
--- NOTE | 2021-11-05 09:49 | P.PN ---
Subjective Progress Note Date: 11/05/21 This is a 89-year-old female who is status post left hip hemiarthroplasty. This is postoperative day #1 and patient is seen and evaluated at bedside with Dr. Jered Longoria. Patient states that she is doing very well and has worked with physical therapy today. Patient does not complain of pain or any new complaints today. Objective - Vital Signs Vital signs: Vital Signs Temp 97.8 F 11/05/21 07:06 Pulse 107 H 11/05/21 07:06 Resp 18 11/05/21 07:06 BP 138/89 11/05/21 07:06 Pulse Ox 97 11/05/21 07:06 FiO2 Intake & Output 11/04/21 11/05/21 11/05/21 18:59 06:59 18:59 Intake Total 1490 Output Total 650 150 Balance 840 -150 Weight 45.359 kg Intake: IV 1050 Intake, IV Titration 440 Amount Sodium Chloride 0.9% 1, 390 000 ml @ 65 mls/hr IV . [id number] [facility] Rx#:[id number] ceFAZolin 2 gm In Sodium 50 Chloride 0.9% 50 ml @ 100 mls/hr IVPB Q8HR [facility] Rx# :[id number] Output: Urine 600 150 Estimated Blood Loss 50 Other: Voiding Method Indwelling Catheter Indwelling Catheter # Bowel Movements 1 - Exam Vital signs are stable. Patient is in no acute distress and is alert and oriented 3. Calf is soft and nontender to palpation. Dressing is clean, dry, and intact. Patient has full foot and ankle motion without pain or difficulty. Sensation intact. Neurovascular status and circulatory status are intact. - Labs CBC & Chem 7: 11/05/21 06:04 11/04/21 06:11 Labs: Abnormal Lab Results - Last 24 Hours (Table) 11/04/21 11/04/21 11/05/21 Range/Units 06:11 06:11 06:04 WBC 13.29 H 13.59 H (4.50-10.00) X 10*3/uL MCV 100.7 H 100.2 H (80.0-97.0) fL MCH 32.5 H (27.0-32.0) pg MCHC 31.8 L (32.0-37.0) g/dL Immature Gran # 0.06 H 0.07 H (0.00-0.04) X 10*3/uL Neutrophils # 9.85 H 10.47 H (1.80-7.70) X 10*3/uL Monocytes # 1.23 H (0.20-1.00) X 10*3/uL BUN/Creatinine Ratio 28.13 H (12.00-20.00) Ratio Glucose 124 H (70-110) mg/dL Assessment and Plan (1) S/P hip hemiarthroplasty Current Visit: Yes Status: Acute Code(s): Z96.649 - PRESENCE OF UNSPECIFIED ARTIFICIAL HIP JOINT SNOMED Code(s): 316393132 (2) Hip fracture, left Current Visit: Yes Status: Acute Code(s): S72.002A - FRACTURE OF UNSP PART OF NECK OF LEFT FEMUR, INIT SNOMED Code(s): 730193745 (3) Fall Current Visit: No Status: Acute Code(s): W19.XXXA - UNSPECIFIED FALL, INITIAL ENCOUNTER SNOMED Code(s): 1289723 Plan: Continue routine postop care and pain control. Continue hip dislocation precautions and use of abductor pillow for 6 weeks. Continue anticoagulation with Eliquis. Weightbearing as tolerated with a walker. Leave dressing in place for 7 days. Appreciate input from medicine. Anticipate discharge to [facility] in the next 24-48 hours.
[2021-11-05] MEDS ORDERED: BENZOCAINE/MENTHOL LOZENG 1 EACH LOZENGE MUCOUS MEM PRN (15:05)
--- NOTE | 2021-11-05 17:31 | P.PN ---
Subjective Progress Note Date: 11/05/21 Progress note date of service 11/23/[address] Murcia, follow-up on the medical management and consult Patient seen and evaluated [id number] discussed with her son and her daughter at bedside Patient is conscious alert oriented she did not complain of severe pain Patient underwent hemiarthroplasty on 11/04/2021 of the left femur. By Dr. Lawton orthopedic surgeon. Patient fell on her left side with subcapital fracture of the left hip. Underwent standard anterolateral approach of the left hip. Patient did well in surgery and today her vital sign indicating temperature 97.2 FL and her heart rate 109 regular with mild tachycardia respiratory rate rate 18/m nonlabored blood pressure 125/80 and pulse ox on room air 95% on 2 L. On exam: Patient conscious alert intermittently confused her HEENT was negative she had natural teeth and some hearing deficit Neck was supple no JVD no thyromegaly no lymphadenopathy trachea midline. The chest clear to auscultation percussion with the mild kyphoscoliosis Heart was regular sinus tachycardia. Abdomen is soft positive bowel sounds slightly distended and extremities no edema and normal pulses Assessment #1 status post left hemiarthroplasty of the femur She had history of hyperparathyroidism underwent nodule resection by Dr. Maira Gannon many years ago however she still have now some elevation of parathyroid hormone calcium, currently does not need any further surgical attention. Hypertension is controlled Atrial fibrillation currently sinus tachycardia Plan: Continue monitor Patient subsequently may go to medical [place] for nursing rehabilitation and ambulation. We'll continue the current treatment Increased heart rate will be monitored and treated if needed. Objective - Vital Signs Vital signs: Vital Signs Temp 97.2 F L 11/05/21 13:00 Pulse 109 H 11/05/21 13:02 Resp 18 11/05/21 13:02 BP 125/80 11/05/21 13:00 Pulse Ox 95 11/05/21 13:00 FiO2 Intake & Output 11/04/21 11/05/21 11/05/21 18:59 06:59 18:59 Intake Total 1490 Output Total 650 150 350 Balance 840 -150 -350 Weight 45.359 kg Intake: IV 1050 Intake, IV Titration 440 Amount Sodium Chloride 0.9% 1, 390 000 ml @ 65 mls/hr IV . [id number] [facility] Rx#:[id number] ceFAZolin 2 gm In Sodium 50 Chloride 0.9% 50 ml @ 100 mls/hr IVPB Q8HR [facility] Rx# :[id number] Output: Urine 600 150 350 Estimated Blood Loss 50 Other: Voiding Method Indwelling Catheter Indwelling Catheter Indwelling Catheter # Bowel Movements 1 - Labs CBC & Chem 7: 11/05/21 06:04 11/04/21 06:11 Labs: Abnormal Lab Results - Last 24 Hours (Table) 11/05/21 Range/Units 06:04 WBC 13.59 H (4.50-10.00) X 10*3/uL MCV 100.2 H (80.0-97.0) fL MCHC 31.8 L (32.0-37.0) g/dL Immature Gran # 0.07 H (0.00-0.04) X 10*3/uL Neutrophils # 10.47 H (1.80-7.70) X 10*3/uL Monocytes # 1.23 H (0.20-1.00) X 10*3/uL
[2021-11-05] MEDS: SENNOSIDES-DOCUSATE SODIUM 1 EACH TAB PO SCH (22:06)
[2021-11-05] MEDS: traMADol 50 MG TAB PO PRN (22:13)
[2021-11-05] MEDS: DEXTROSE 5%-0.45% NACL 1,000 ML IV SCH (23:03)
[2021-11-06] MEDS: METOPROLOL TARTRATE 50 MG TAB PO SCH ×2 (09:07→20:19)
[2021-11-06] MEDS: lisinopriL 20 MG TAB PO SCH (09:07)
[2021-11-06] MEDS: APIXABAN 2.5 MG TABLET PO SCH ×2 (09:07→20:19)
[2021-11-06] MEDS: DORZOLAMIDE HCL 2% DROPS 10 ML BTL BOTH EYES SCH ×2 (09:07→20:19)
[2021-11-06] MEDS: hydrALAZINE HCL 25 MG TAB PO SCH (09:07)
[2021-11-06] MEDS: ATORVASTATIN 10 MG TAB PO SCH (09:07)
--- NOTE | 2021-11-06 10:24 | P.PN ---
Subjective Progress Note Date: 11/06/21 This patient is an 89-year-old female who is status-post left hip hemiarthroplasty on 11/04/21. Today is post-operative day #2. Patient is examined bedside this morning. She states the pain in the left hip is well-controlled at this time. She states she was up to the bedside chair yesterday ambulating with a walker. Per nursing, the patient's Flores catheter is being placed this morning due to urinary retention. Patient is to concerns this morning. vital signs stable. Objective - Vital Signs Vital signs: Vital Signs Temp 98.0 F 11/06/21 08:00 Pulse 112 H 11/06/21 09:05 Resp 16 11/06/21 08:00 BP 110/71 11/06/21 09:05 Pulse Ox 99 11/06/21 08:00 FiO2 Intake & Output 11/05/21 11/06/21 11/06/21 18:59 06:59 18:59 Intake Total 800 Output Total 350 900 Balance 450 -900 Intake: Oral 800 Output: Urine 350 450 Straight 450 Post Void Residual 450 Other: Voiding Method Indwelling Catheter Bedside Commode - Exam On examination, the patient is sitting up in bed in no apparent distress. She is alert and answers questions properly. There is an abduction pillow in place. On inspection of her left hip, there is a clean, dry, intact dressing in place. No bleeding or drainage through the dressing. There is mild swelling of the thigh, the thigh is soft and compressible. Motor and sensory function is intact of the left lower extremity. Dorsalis pedis pulse easily palpable, left lower extremity is well-perfused with brisk capillary refill distally. Calf is soft and nontender to palpation. - Labs CBC & Chem 7: 11/05/21 06:04 11/04/21 06:11 Assessment and Plan Assessment: Status-post left hip hemiarthroplasty on 11/04/21. Post-operative day #2. Plan: - Patient may weight bear to tolerance on the left hip with a walker. Up with assistance. Fall precautions. - Continue hip dislocation precautions. Keep the abduction pillow in place while in bed x 6 weeks. - Physical therapy for gait and balance training. - Keep Optifoam dressing in place. - Pain management as needed. - Eliquis for DVT prophylaxis. - Medical management per internal medicine team. - Anticipate discharge to rehab when auth obtained.
[2021-11-06 11:54] LABS: Appearance,Urine Clear (Clear); Bacteria,Urine Rare /hpf; Bilirubin,Urine Negative (Negative); Blood,Urine Negative (Negative); Color,Urine Yellow; Glucose,Urine (UA) Negative (Negative); Ketones,Urine Negative (Negative); Leukocyte Esterase,Urine Trace (Negative); Mucus,Urine Rare /hpf; Nitrite,Urine Negative (Negative); Protein,Urine Trace (Negative); RBC,Urine 2 /hpf (0-5); Specific Gravity,Urine 1.015 (1.001-1.035); WBC,Urine 5 /hpf (0-5)
--- NOTE | 2021-11-06 12:23 | P.PN ---
Subjective Progress Note Date: 11/06/21 (Urinary retention more than 350 by bladder scan) Progress note date of service 11/06/[address] Twin Riddle [facility] Patient seen oigs-[id number] evaluated and discussed with the patient I also talked to her nurse as well I received a call from RN taking care of the patient , she stated that she had retention of the urine with the bladder scan more than 350 after they removed the catheter Patient underwent left hip subcapital fracture with replacement hemiarthroplasty and anesthesia was reported by the nurse general anesthesia. Usually they take the catheter out after the first day, patient indicating that her urine she wants to urinate but unable to urinate. Patient did not have this symptoms at home and she was able to urinate normally. She denied any chest pain or shortness of breath or flank pain. Vital sign stable, temperature 98.0 F oral blood pressure 137/40, still heart rate speedy tachycardia between ranging 112-107, respiratory rate 16/m. On the exam patient's conscious alert oriented she had intermittently confusion Vital signs stable Head was normocephalic and atraumatic no changes, oropharynx natural teeth. Neck was supple no JVD no thyromegaly no lymphadenopathy. Chest is clear to auscultation percussion Heart tachycardic with the heart rate 1 12 bpm resistant with the underlying history of atrial fibrillation not well-controlled with metoprolol tartrate 100 mg twice a day. Abdomen distended with the possibility of stool retention. Positive bowel sounds Extremities no edema status post left hip hemiarthroplasty. Assessment: #1 urinary retention. #2 status post left hip hemiarthroplasty. #3 history of atrial fibrillation and tachycardia she already restarted on anticoagulant her orthopedic. 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 Plan: #1 reinserts the Flores catheter with the urine retention #2 started Flomax 0.4 mg once a day #3 elixir suppository Dulcolax #4 discontinue hydralazine with the possibility of participation in tachycardia We'll follow with you Objective - Vital Signs Vital signs: Vital Signs Temp 98.0 F 11/06/21 08:00 Pulse 112 H 11/06/21 09:05 Resp 16 11/06/21 08:00 BP 110/71 11/06/21 09:05 Pulse Ox 99 11/06/21 08:00 FiO2 Intake & Output 11/05/21 11/06/21 11/06/21 18:59 06:59 18:59 Intake Total 800 Output Total 350 900 400 Balance 450 -900 -400 Intake: Oral 800 Output: Urine 350 450 400 Straight 450 Uretheral (Flores) 400 Post Void Residual 450 Other: Voiding Method Indwelling Catheter Bedside Commode - Labs CBC & Chem 7: 11/05/21 06:04 11/04/21 06:11 Labs: Abnormal Lab Results - Last 24 Hours (Table) 11/06/21 Range/Units 11:10 Urine Protein Trace H (Negative) Ur Leukocyte Esterase Trace H (Negative) Urine Bacteria Rare H (None) /hpf Urine Mucus Rare H (None) /hpf
[2021-11-06] MEDS: TAMSULOSIN 0.4 MG CAP.ER.24H PO SCH (12:55)
[2021-11-06] MEDS: METOPROLOL TARTRATE 25 MG TAB PO SCH (12:55)
[2021-11-06] MEDS: bisacodyL 10 MG SUPP RECTAL SCH (15:20)
[2021-11-06] MEDS: traMADol 50 MG TAB PO PRN (15:27)
[2021-11-06] MEDS: SODIUM CHLORIDE 0.9% 1,000 ML IV SCH (20:19)
[2021-11-06] MEDS: SENNOSIDES-DOCUSATE SODIUM 1 EACH TAB PO SCH (20:19)
[2021-11-07] MEDS: bisacodyL 10 MG SUPP RECTAL SCH (09:03)
[2021-11-07 09:10] LABS: Basophils # (A) 0.03 X 10*3/uL (0.00-0.10); Basophils % (A) 0.3 %; Eosinophils # (A) 0.18 X 10*3/uL (0.04-0.35); Eosinophils % (A) 1.9 %; HGB 10.3 g/dL (12.0-15.0); Immature Grans, Automated 0.5 %; Lymphocytes # (A) 1.47 X 10*3/uL (0.90-5.00); Lymphocytes % (A) 15.5 %; MCH 32.6 pg (27.0-32.0); MCHC 33.2 g/dL (32.0-37.0); MCV 98.1 fL (80.0-97.0); Mean Platelet Volume 11.2 fL (9.5-12.2); Monocytes # (A) 1.06 X 10*3/uL (0.20-1.00); Monocytes % (A) 11.2 %; NRBC Per 100 WBC 0 /100 WBCS (0.0-0.0); Neutrophils # (A) 6.69 X 10*3/uL (1.80-7.70); Neutrophils % (A) 70.6 %; Platelet Count 122 X 10*3/uL (140-440); RBC 3.16 X 10*6/uL (4.10-5.20); RDW 13.1 % (11.5-14.5); WBC 9.48 X 10*3/uL (4.50-10.00)
[2021-11-07] MEDS: traMADol 50 MG TAB PO PRN (09:11)
[2021-11-07] MEDS: DORZOLAMIDE HCL 2% DROPS 10 ML BTL BOTH EYES SCH ×2 (09:12→19:52)
[2021-11-07] MEDS: lisinopriL 20 MG TAB PO SCH (09:12)
[2021-11-07] MEDS: ATORVASTATIN 10 MG TAB PO SCH ×2 (09:12→09:20)
[2021-11-07] MEDS: METOPROLOL TARTRATE 50 MG TAB PO SCH ×2 (09:12→19:53)
[2021-11-07] MEDS: TAMSULOSIN 0.4 MG CAP.ER.24H PO SCH (09:12)
[2021-11-07] MEDS: APIXABAN 2.5 MG TABLET PO SCH ×2 (09:12→19:53)
[2021-11-07] MEDS: DEXTROSE 5%-0.45% NACL 1,000 ML IV SCH (09:13)
[2021-11-07] MEDS: SODIUM CHLORIDE 0.9% 1,000 ML IV SCH (09:13)
--- NOTE | 2021-11-07 10:31 | P.PN ---
Subjective Progress Note Date: 11/07/21 This patient is an 89-year-old female who is status-post left hip hemiarthroplasty on 11/04/21. Today is post-operative day #3. Patient is examined bedside this morning. Patient was up yesterday to the bathroom. Flores catheter was reinserted yesterday due to urinary retention. Flomax has been started per internal medicine. Patient has also been tachycardic, metoprolol has been increased. Patient has no complaints or concerns this morning. She states the pain in her hip is well-controlled. Objective - Vital Signs Vital signs: Vital Signs Temp 98.3 F 11/07/21 08:00 Pulse 111 H 11/07/21 08:00 Resp 17 11/07/21 08:00 BP 132/84 11/07/21 08:00 Pulse Ox 92 L 11/07/21 08:00 FiO2 Intake & Output 11/06/21 11/07/21 11/07/21 18:59 06:59 18:59 Output Total 400 600 Balance -400 -600 Output: Urine 400 600 Uretheral (Flores) 400 Other: Voiding Method Indwelling Catheter Indwelling Catheter # Voids 600 # Bowel Movements 2 - Exam On examination, the patient is sitting up in bed in no apparent distress. She is alert and answers questions properly. There is an abduction pillow in place. On inspection of her left hip, there is a clean, dry, intact dressing in place. No bleeding or drainage through the dressing. There is mild swelling of the thigh, the thigh is soft and compressible. Motor and sensory function is intact of the left lower extremity. Dorsalis pedis pulse easily palpable, left lower extremity is well-perfused with brisk capillary refill distally. Calf is soft and nontender to palpation. - Labs CBC & Chem 7: 11/07/21 03:43 11/04/21 06:11 Labs: Abnormal Lab Results - Last 24 Hours (Table) 11/06/21 11/07/21 Range/Units 11:10 03:43 RBC 3.16 L (4.10-5.20) X 10*6/uL Hgb 10.3 L (12.0-15.0) g/dL Hct 31.0 L (37.2-46.3) % MCV 98.1 H (80.0-97.0) fL MCH 32.6 H (27.0-32.0) pg Plt Count 122 L (140-440) X 10*3/uL Immature Gran # 0.05 H (0.00-0.04) X 10*3/uL Monocytes # 1.06 H (0.20-1.00) X 10*3/uL Urine Protein Trace H (Negative) Ur Leukocyte Esterase Trace H (Negative) Urine Bacteria Rare H (None) /hpf Urine Mucus Rare H (None) /hpf Assessment and Plan Assessment: Status-post left hip hemiarthroplasty on 11/04/21. Post-operative day #3. Plan: - Patient may weight bear to tolerance on the left hip with a walker. Up with assistance. Fall precautions. - Continue hip dislocation precautions. Keep the abduction pillow in place while in bed x 6 weeks. - Physical therapy for gait and balance training. - Keep Optifoam dressing in place. - Pain management as needed. - Eliquis for DVT prophylaxis. - Medical management per internal medicine team. - Anticipate discharge to rehab when auth obtained.
[2021-11-07] MEDS: METOPROLOL TARTRATE 25 MG TAB PO SCH (12:55)
[2021-11-07 13:14] LABS: African American GFR (CKD) 99.5 (60.0-200.0); Anion Gap 9.9 mmol/L (10.00-18.00); Blood Urea Nitrogen 14.5 mg/dL (9.0-27.0); Calcium 8.5 mg/dL (8.7-10.3); Carbon Dioxide 20.1 mmol/L (20.0-27.5); Non-African American GFR(CKD) 85.8 (60.0-200.0); Potassium 3.8 mmol/L (3.5-5.5)
--- NOTE | 2021-11-07 14:15 | P.PN ---
Subjective Progress Note Date: 11/07/21 (Hyponatremia) Progress note Date of service 11/07/[address] Twin Riddle [facility] Patient seen today esti-so-bves discussed with the patient and her son at bedside. Status post hip fracture subcapital repaired by Dr. Jered rodarte. Her pain is currently controlled Plan for snf for future rehabilitation after the Labor Day. Her vital sign temperature 98.3 F oral her heart rate ranging between 111-106 with the adding 25 mg of metoprolol during the lunchtime and probably we will be increasing to 50 mg Respiratory rate 17 nonlabored Blood pressures controlled with the 130 / 84 and the mean 100 Dictating of the blood pressure on 12:54 PM 108/76. And the pressure mean pressure is 80 and oxygen saturation 92% Laboratory: WBC 9.8, her hemoglobin is 10.3 and hematocrit 31.0 with the drop of the hemoglobin, her hemoglobin on 11/03 21 was 16.4 with the gradual drop to 10.3 probably secondary to hydration as well as surgery. Chemistry: Sodium on 11/03/21 was 138 mmol and today 127 with the hyponatremia and fourth her laboratories, ordered stat for serum osmolality, urine osmolality, urine sodium spot urine. We'll hold the IV with Hep-Lock repeat BMP in a.m. as patient able to eat and swallow., Her anion gap is 9.9, BUN 14.5, creatinine 0.5, EGFR 85.8 Hemoglobin A1c 5.7 with a glucose 108 with the average glucose estimated 118 no evidence of diabetes mellitus. Calcium is 8.5 On exam: The head was normocephalic atraumatic pupil was equal reactive oropharynx she had natural disease able to eat and swallow Neck was supple no JVD no thyromegaly no lymphadenopathy she had history of hyperparathyroidism, and mild elevation of the PTH intact no need for for further surgical or medical treatment with her calcium 8.5. Chest is clear to auscultation percussion Heart she had history of atrial fibrillation, she is on Eliquis. Abdomen is soft positive bowel sounds and she had some constipation and patient had medication for that Extremities no edema and is status post left hip subcapital arthroplasty, hemiarthroplasty. Assessment: #1 hyponatremia could be secondary to the IV fluid with the drop of sodium and a hemoglobin admitted to the surgical intervention #2 hypertension was controlled #3 constipation. #4 history of hyperparathyroidism. Recommendation and plan Obtaining the spot sample of urine for sodium and osmolality as well as serum osmolality Hold the IV fluid as patient able to eat and drink. Obtain laboratory in a.m. Discussed with the patient and her son she has Flores cath in now due to retention of the urine Will make a trial of removing the Flores catheter tomorrow and if she retained urine again will consult the neurology. Patient on Flomax and could be the retention of the urine post operative. Objective - Vital Signs Vital signs: Vital Signs Temp 98.3 F 11/07/21 08:00 Pulse 106 H 11/07/21 12:54 Resp 17 11/07/21 08:00 BP 108/67 11/07/21 12:54 Pulse Ox 92 L 11/07/21 08:00 FiO2 Intake & Output 11/06/21 11/07/21 11/07/21 18:59 06:59 18:59 Output Total 400 600 Balance -400 -600 Output: Urine 400 600 Uretheral (Flores) 400 Other: Voiding Method Indwelling Catheter Indwelling Catheter # Voids 600 # Bowel Movements 2 1 - Labs CBC & Chem 7: 11/07/21 03:43 11/07/21 03:43 Labs: Abnormal Lab Results - Last 24 Hours (Table) 11/07/21 11/07/21 Range/Units 03:43 03:43 RBC 3.16 L (4.10-5.20) X 10*6/uL Hgb 10.3 L (12.0-15.0) g/dL Hct 31.0 L (37.2-46.3) % MCV 98.1 H (80.0-97.0) fL MCH 32.6 H (27.0-32.0) pg Plt Count 122 L (140-440) X 10*3/uL Immature Gran # 0.05 H (0.00-0.04) X 10*3/uL Monocytes # 1.06 H (0.20-1.00) X 10*3/uL Sodium 127 L (135-145) mmol/L Anion Gap 9.90 L (10.00-18.00) mmol/L Creatinine 0.5 L (0.6-1.5) mg/dL BUN/Creatinine Ratio 29.00 H (12.00-20.00) Ratio Calcium 8.5 L (8.7-10.3) mg/dL
[2021-11-07] MEDS: SENNOSIDES-DOCUSATE SODIUM 1 EACH TAB PO SCH (19:53)
[2021-11-08] MEDS: ATORVASTATIN 10 MG TAB PO SCH (09:37)
[2021-11-08] MEDS: DORZOLAMIDE HCL 2% DROPS 10 ML BTL BOTH EYES SCH ×2 (09:37→20:30)
[2021-11-08] MEDS: APIXABAN 2.5 MG TABLET PO SCH ×2 (09:37→20:30)
[2021-11-08] MEDS: TAMSULOSIN 0.4 MG CAP.ER.24H PO SCH (09:37)
[2021-11-08] MEDS: METOPROLOL TARTRATE 50 MG TAB PO SCH ×3 (09:37→20:29)
[2021-11-08] MEDS: lisinopriL 20 MG TAB PO SCH (09:37)
[2021-11-08] MEDS: bisacodyL 10 MG SUPP RECTAL SCH (09:38)
[2021-11-08 10:00] LABS: African American GFR (CKD) 95.4 (60.0-200.0); Anion Gap 8.8 mmol/L (10.00-18.00); Blood Urea Nitrogen 14.2 mg/dL (9.0-27.0); Calcium 8.8 mg/dL (8.7-10.3); Carbon Dioxide 23.4 mmol/L (20.0-27.5); Non-African American GFR(CKD) 82.3 (60.0-200.0); Potassium 4.1 mmol/L (3.5-5.5)
--- NOTE | 2021-11-08 14:08 | P.PN ---
Subjective Progress Note Date: 11/08/21 This patient is an 89-year-old female who is status-post left hip hemiarthroplasty on 11/04/21. Today is post-operative day #4. Patient is examined bedside this morning. Left hip pain is well-controlled at this time. She was up to the bedside commode yesterday. She has no complaints or concerns this morning. Vital signs stable. Objective - Vital Signs Vital signs: Vital Signs Temp 97.7 F 11/08/21 08:00 Pulse 111 H 11/08/21 08:00 Resp 16 11/08/21 08:00 BP 115/72 11/08/21 08:00 Pulse Ox 96 11/08/21 08:00 FiO2 Intake & Output 11/07/21 11/08/21 11/08/21 18:59 06:59 18:59 Output Total 350 500 Balance -350 -500 Output: Urine 350 500 Other: Voiding Method Indwelling Catheter Indwelling Catheter Indwelling Catheter # Bowel Movements 1 7 - Exam On examination, the patient is sitting up in bed in no apparent distress. She is alert and answers questions properly. There is an abduction pillow in place. On inspection of her left hip, there is a clean, dry, intact dressing in place. No bleeding or drainage through the dressing. There is mild swelling of the thigh, the thigh is soft and compressible. Motor and sensory function is intact of the left lower extremity. Dorsalis pedis pulse easily palpable, left lower extremity is well-perfused with brisk capillary refill distally. Calf is soft and nontender to palpation. - Labs CBC & Chem 7: 11/07/21 03:43 11/08/21 03:41 Labs: Abnormal Lab Results - Last 24 Hours (Table) 11/07/21 11/07/21 11/08/21 Range/Units 14:17 18:27 03:41 Sodium 128 L (135-145) mmol/L Anion Gap 8.80 L (10.00-18.00) mmol/L BUN/Creatinine Ratio 25.00 H (12.00-20.00) Ratio Glucose 117 H (70-110) mg/dL Osmolality 263 L (280-301) mosm/kg Ur Random Sodium <20 L (40-220) mmol/L Assessment and Plan Assessment: Status-post left hip hemiarthroplasty on 9/1/22. Post-operative day #4. Plan: - Patient may weight bear to tolerance on the left hip with a walker. Up with assistance. Fall precautions. - Continue hip dislocation precautions. Keep the abduction pillow in place while in bed x 6 weeks. - Physical therapy for gait and balance training. - Keep Optifoam dressing in place. - Pain management as needed. - Eliquis for DVT prophylaxis. - Medical management per internal medicine team. - Anticipate discharge to rehab tomorrow if medically cleared.
--- NOTE | 2021-11-08 14:56 | P.PN ---
Subjective Progress Note Date: 11/08/21 (We'll DC the Flores catheter and repeat bladder scan trial) Progress note Date of service 11/08/[address] Murcia Patient seen [id number] and discussed with patient, her son, her daughter at bedside. This is a follow-up on that, medical consult with the underlying mild hyponatremia which has been improved today to 128 from previously 127 we'll continue current plan. Patient able to eat and swallow and drink no need for IV at this time Laboratory indicating anemia with the drop of hemoglobin probably secondary to surgery and hydration and the plan to the the CBC in a.m. and lites BUN and c reatinine tomorrow as well as obtain today I'll start to see if patient need to be added iron supplementation. Patient on novel anticoagulant for her chronic atrial fibrillation. Vital sign Temperature 97.7 F oral her heart rate 111 and we started on the metoprolol she is taken twice a day 100 and lunchtime 50 will see the effect by tomorrow and how patient handled. Respiratory rate 16 normal nonlabored. No shortness of breath In the physical exam patient is conscious alert however intermittently confused Blood pressure 122/83 subsequently 115/72 and will decrease the lisinopril from 20 mg to 10 mg with the dropping of the blood pressure, oxygen saturation 96% on room air. Laboratories sodium 128, potassium 4.1 chloride 96 carbon dioxide 23.4 her EGFR 82.3 and glucose 117 with the hemoglobin A1c 5.7., Calcium today is improved to 8.8. Clinical exam Head was normocephalic and atraumatic pupil was equal reactive oropharynx natural teeth, neck was supple no JVD no thyromegaly no lymphadenopathy scar from previous surgery on the parathyroid on the neck. Chest was clear to auscultation and percussion with the underlying kyphoscoliosis Heart was regular sinus rhythm and she had systolic murmur as well as she has compensated heart abdomen was soft positive bowel sounds she had a bowel movement. Extremities no edema Flores catheter in place We'll try second trial for removing the Flores catheter and if patient retained urine by the bladder scan urology consult and ordered. 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 Plan: IV fluid has been discontinued and patient will be sending on her intake and output and no evidence of edema or congestive heart failure. We'll repeat BMP tomorrow We'll repeat lab and iron study with the anemia that developed lab tomorrow Objective - Vital Signs Vital signs: Vital Signs Temp 97.7 F 11/08/21 08:00 Pulse 111 H 11/08/21 08:00 Resp 16 11/08/21 08:00 BP 115/72 11/08/21 08:00 Pulse Ox 96 11/08/21 08:00 FiO2 Intake & Output 11/07/21 11/08/21 11/08/21 18:59 06:59 18:59 Output Total 350 500 Balance -350 -500 Output: Urine 350 500 Other: Voiding Method Indwelling Catheter Indwelling Catheter Indwelling Catheter # Bowel Movements 1 7 - Labs CBC & Chem 7: 11/07/21 03:43 11/08/21 03:41 Labs: Abnormal Lab Results - Last 24 Hours (Table) 11/07/21 11/07/21 11/08/21 Range/Units 14:17 18:27 03:41 Sodium 128 L (135-145) mmol/L Anion Gap 8.80 L (10.00-18.00) mmol/L BUN/Creatinine Ratio 25.00 H (12.00-20.00) Ratio Glucose 117 H (70-110) mg/dL Osmolality 263 L (280-301) mosm/kg Ur Random Sodium <20 L (40-220) mmol/L
[2021-11-08] MEDS: SENNOSIDES-DOCUSATE SODIUM 1 EACH TAB PO SCH (20:29)
[2021-11-09] MEDS: traMADol 50 MG TAB PO PRN (00:14)
[2021-11-09 06:33] LABS: % Iron Saturation 10.02 (12.00-45.00)
[2021-11-09] MEDS: lisinopriL 10 MG TAB PO SCH (08:31)
[2021-11-09] MEDS: METOPROLOL TARTRATE 50 MG TAB PO SCH ×2 (08:31→21:56)
[2021-11-09] MEDS: ATORVASTATIN 10 MG TAB PO SCH (08:31)
[2021-11-09] MEDS: APIXABAN 2.5 MG TABLET PO SCH ×2 (08:31→21:55)
[2021-11-09] MEDS: bisacodyL 10 MG SUPP RECTAL SCH (08:31)
[2021-11-09] MEDS: DORZOLAMIDE HCL 2% DROPS 10 ML BTL BOTH EYES SCH ×2 (08:31→21:56)
[2021-11-09] MEDS: TAMSULOSIN 0.4 MG CAP.ER.24H PO SCH (08:31)
[2021-11-09] MEDS: MORPHINE SULFATE 4 MG/ML SYRINGE IV PRN (09:31)
[2021-11-09 10:58] LABS: Basophils # (A) 0.02 X 10*3/uL (0.00-0.10); Basophils % (A) 0.2 %; Eosinophils # (A) 0.03 X 10*3/uL (0.04-0.35); Eosinophils % (A) 0.3 %; HGB 10.7 g/dL (12.0-15.0); Lymphocytes % (A) 14.6 %; MCH 32.2 pg (27.0-32.0); MCHC 33.4 g/dL (32.0-37.0); MCV 96.4 fL (80.0-97.0); Mean Platelet Volume 10.5 fL (9.5-12.2); NRBC Per 100 WBC 0 /100 WBCS (0.0-0.0); Neutrophils # (A) 6.68 X 10*3/uL (1.80-7.70); Neutrophils % (A) 74.9 %; Platelet Count 183 X 10*3/uL (140-440); RBC 3.32 X 10*6/uL (4.10-5.20); RDW 12.7 % (11.5-14.5); WBC 8.92 X 10*3/uL (4.50-10.00)
[2021-11-09 11:14] LABS: African American GFR (CKD) 97.2 (60.0-200.0); Blood Urea Nitrogen 13.4 mg/dL (9.0-27.0); Carbon Dioxide 23.8 mmol/L (20.0-27.5); Non-African American GFR(CKD) 83.9 (60.0-200.0); Potassium 4.5 mmol/L (3.5-5.5)
--- NOTE | 2021-11-09 12:40 | CDI ---
Documentation Clarification Form Date: 11/09/2021 11:53:00 AM From: Ciara Flood CCS, CCDS Admit Date: 11/03/2021 04:03:00 PM Patient Name: Sue Gomez Visit Number: [id number] Discharge Date: ATTENTION: The Clinical Documentation Specialists (CDI) and [facility] Coding Staff appreciate your assistance in clarifying documentation. Please respond to the clarification below the line at the bottom and electronically sign. The CDI & [facility] Coding staff will review the response and follow-up if needed. Please note: Queries are made part of the Legal Health Record. If you have any questions, please contact the author of this message via ITS. Dr. Jacek Murcia: Unspecified anemia is documented in the 11/08 Medical Management Progress Note. Additional specificity regarding the Type & Acuity of Anemia is requested. History/Risk Factors per the 11/03 Orthopedic History & Physical: Atrial Fibrillation on Eliquis, Hypertension, Thyroid Disorder, Essential Tremors, High Cholesterol. Clinical indicators: Presented to the ED on 11/03 after falling yesterday. Xray results showed a subcapital of the left hip. Admit with Left hip fracture. 11/04 Procedure: Left hip Hemiarthoplasty Hemoglobin: 11/03 16.4. 11/04: 4.5. 9.2: 13.1. 11/07: 10.3. 11/09: 10.7 Hematocrit:: 11/03: 52/4. 11/04: 44.9. 9.2: 31.2. 11/07: 31.0. 9.6: 32.0 11/08 LAB: Iron 20, TIBC 202, % Saturation 10.2, Tansferrin 144.0. Treatment 11/03: Telemetry, IV Morphine 2 mg x1, po Tylenol 650 mg q6H/prn, IV Morphine 4 mg q4H/prn, IV Na Chl 1,000 mls @ 999 mls/hr q1H. 11/04: IV Lactated Ringers 1,000 mls, IV Dilaudid 0.125 mg q3H/prn, 0.5 q3H/prn, 0.25 mg q3H/prn; IV Zofran 4 mg q8H/prn, po Ultram 50 mg q6H/prn. Please clarify the Type and Acuity of Anemia: [ ] Acute blood loss anemia [ ] Iron deficiency anemia [ ] Hemolytic anemia [ ] Drug induced anemia [ ] Nutritional anemia [ ] Anemia of chronic disease [ ] Unable to determine [ ] Other, please specify (Template Last Revised: April 2020) MTDD
[2021-11-09] MEDS: SENNOSIDES-DOCUSATE SODIUM 1 EACH TAB PO SCH (21:56)
--- NOTE | 2021-11-09 22:40 | PN ---
PROGRESS NOTE HISTORY: The patient underwent subcapital fracture, was repaired by Dr. Jered Longoria. The patient fell down at [facility] using the walker, landed on her left side. The patient has underlying history of atrial fibrillation, flutter, and she was placed on anticoagulant, and currently postsurgery, she is on anticoagulant and the patient has past history of essential tremor and she had hyperparathyroidism with removal of adenoma by Dr. Maira Gannon and she has a history of hyperparathyroidism and she had history of right arm fracture, treated by Dr. Jered Longoria in the past, hypertension, hyperlipidemia, glaucoma, chronic obstructive pulmonary disease, hypothyroidism, and she had history of right knee effusion in the past, and she had history of muscle weakness and she in the previous admission was at [facility] for rehabilitation. The patient currently exhibits underlying confusion and dementia with the underlying delirium. She has CT scan of the brain done on admission on 11/03 and no acute infarct evident, mild periventricular white matter hypodensity likely on the basis of chronic white matter ischemic changes. The ventricle and sulci are prominent for the patient's age, otherwise chronic-appearing atrophy. Postoperative, she had delirium, confusion, and disorientation as noted by her son as well as her daughter, and I did discuss it with them today as the best is not to treat or not to add any medication to exacerbate this event, and meanwhile, discussed with them. Last night, the laboratory monitor called to the floor and she is on the [facility] fourth floor and was suspicious of changes, and at that time, they Perfect[employer]erve to me calling me, and at that time, we ordered EKG and the EKG was normal with the tachycardia and we adjusted her heart rate gradually with adding beta-yumiko started with 25 and increase to 50. We also obtained the troponin, which was not available due to computer down. The patient did not have any chest pain or anginal pain, but has confusion. Her vital sign was stable as well and they also [employer] to me again last night with the underlying retention of the urine and they have to replace the Flores catheter again to reinsert it, and at that time, I did request to see the urologist to help us for the trial of taking her off the Flores catheter and it did not success and we failed for getting her off the Flores catheter with the retention of the urine, and today, I did ask the nurse taking care of the patient to call the Urology for consultation and for further evaluation if needed, and meanwhile, she is on the Flomax until we see the opinion of the urologist. Also, the patient on the rehab and she is still very early for ambulation and that will be up to Orthopedic and the plan was to go to a shelter as she has been living alone and she was in the [facility] and needs to go back to shelter for further rehabilitation and independency. Meanwhile, now the patient has delirium with the confusion and disorientation. PHYSICAL EXAMINATION: GENERAL: On the exam [id number], she did not sleep during the night and she tried to sleep during the day. Her both daughter and son at bedside. She is, however, conscious, alert, able to communicate, confused. NECK: Supple. CHEST: Clear to auscultation and percussion. No wheezes or rhonchi. HEART: Regular sinus rhythm, but sinus tachycardia with a history of atrial fibrillation, paroxysmal, on Eliquis medication per Cardiology in the past. ABDOMEN: Soft. Positive bowel sounds. EXTREMITIES: No edema. Positive pulses. ASSESSMENT: 1. Status post hemiarthroplasty by Dr. Longoria. 2. Essential tremor. 3. CAT scan of the brain initially on admission was negative and currently she had delirium. 4. Need further rehabilitation and probably shelter for prolonged rehabilitation. 5. History of hyponatremia and hypertension is controlled. The lytes and BMP are not available due to the computer down again. We will be rechecking again to see if any need of adjustment at this time and need further labs for tomorrow; however, order could not be placed in with the computer down. 6. She had mild leukocytosis and hopefully that is improved as well. MMODL / IJN: [id number] /
[2021-11-10] MEDS: METOPROLOL TARTRATE 50 MG TAB PO SCH ×4 (06:59→20:55)
[2021-11-10] MEDS: TAMSULOSIN 0.4 MG CAP.ER.24H PO SCH (08:01)
[2021-11-10] MEDS: APIXABAN 2.5 MG TABLET PO SCH ×2 (08:01→20:55)
[2021-11-10] MEDS: DORZOLAMIDE HCL 2% DROPS 10 ML BTL BOTH EYES SCH ×2 (08:01→20:56)
[2021-11-10] MEDS: bisacodyL 10 MG SUPP RECTAL SCH (08:01)
[2021-11-10] MEDS: lisinopriL 10 MG TAB PO SCH (08:01)
[2021-11-10] MEDS: ATORVASTATIN 10 MG TAB PO SCH (08:01)
--- NOTE | 2021-11-10 08:36 | CDI ---
x Documentation Clarification Form Date: 11/10/2021 08:20:51 AM From: Ciara FoyFloodELIAS tobias, CCDS Admit Date: 11/03/2021 04:03:00 PM Patient Name: Sue Gomez Visit Number: [id number] Discharge Date: ATTENTION: The Clinical Documentation Specialists (CDI) and [facility] Coding Staff appreciate your assistance in clarifying documentation. Please respond to the clarification below the line at the bottom and electronically sign. The CDI & [facility] Coding staff will review the response and follow-up if needed. Please note: Queries are made part of the Legal Health Record. If you have any questions, please contact the author of this message via ITS. Dr. Jacek Murcia: Per the 11/09 Medical Management Progress Note the patient has delirium with confusion and disorientation postoperatively without further specificity. Additional clarification regarding the cause of the patient's delirium, confusion and disorientation is requested. History/Risk Factors per the 11/03 H/P: Atrial Fibrillation on Eliquis, Hypertension, Essential Tremor, Hyperparathyroidism with removal of adenoma, Hyperlipidemia, Glaucoma, COPD. Clinical Indicators: Presented from Assisted Living Facility after a fall and with left hip fracture. Admit with same. 11/04 Procedure: Left Hip Hemiarthroplasty for Subcapital Fracture of Left Hip 11/03 VS: T 97.6, P 104, R 20, BP 118/79, PO96 RA - 91 RA, BMI: 18.3 11/07 VS: T 105, P 103, R 16 - 18, BP 122/83, PO 92 RA 11/03 LAB: WBC 15.2, Hgb 16.4, Hct 52.4, Neut 12.3; BUN 22, Glucose 125, Calcium 10.5, Ionized Calcium Casey 5.4, PTH Intact 87.6. 11/07 LAB: RBC 3.16, Hgb 10.3, Hct 31.0, Plt Ct 122, Immature Gran 0.05, Monocytes 1.06; Na 127, Anion Gap 9.90, Creatinine 0.5, BUN/Creatinine Ratio 29.00, Osmolality 263, Calcium 8.5. 11/03 CT Brain: Atrophy with chronic appearing periventricular white matter ischemic changes. 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 Treatment 11/03: Telemetry, IV Morphine 2 mg x1, po Tylenol 650 mg q6H/prn, IV Morphine 4 mg q4H/prn, IV Na Chl 1,000 mls @ 999 mls/hr q1H, po Eliquis 2.5 mg BIG, po Apresoline 25 mg BID, po Lopressor 100 mg BID. 11/04: IV Lactated Ringers 1,000 mls, IV Dilaudid 0.125 mg q3H/prn, IV Dilaudid 0.5 mg q3H/prn, IV Dillaudid 0.25 mg q3H/prn, IV Zofran 4 mg q8H/prn, po Ultram 50 mg q5H/prn, po Ultram 100 mg QID/prn. 11/05: IV Cefazolin 50 mls @ 100 mls/hr q8H Please further clarify the following: [ ] Metabolic Encephalopathy [ ] Toxic Encephalopathy [ x ] Other, please specify__delirium. Post operative [ ] Unable to determine (Template Last Revised: May 2020) MTDD
--- NOTE | 2021-11-10 09:59 | P.PN ---
Subjective Late entry from 11/09/21: This patient is an 89-year-old female who is status-post left hip hemiarthroplasty on 11/04/21. Today is post-operative day #6. Patient is examined bedside this morning. Awaiting rehab placement. Per nursing she was up to bedside chair. Her hip pain is well controlled. Objective - Vital Signs Vital signs: Vital Signs Temp 98.3 F 11/10/21 07:18 Pulse 105 H 11/10/21 07:18 Resp 16 11/10/21 07:18 BP 119/81 11/10/21 07:18 Pulse Ox 95 11/10/21 07:18 FiO2 Intake & Output 11/09/21 11/10/21 11/10/21 18:59 06:59 18:59 Output Total 800 Balance -800 Weight 45.359 kg Output: Urine 800 Other: Voiding Method Indwelling Catheter Indwelling Catheter Indwelling Catheter - Exam On examination, the patient is sitting up in bed in no apparent distress. She is alert and answers questions properly. There is an abduction pillow in place. On inspection of her left hip, there is a clean, dry, intact dressing in place. No bleeding or drainage through the dressing. There is mild swelling of the thigh, the thigh is soft and compressible. Motor and sensory function is intact of the left lower extremity. Dorsalis pedis pulse easily palpable, left lower extremity is well-perfused with brisk capillary refill distally. Calf is soft and nontender to palpation. - Labs CBC & Chem 7: 11/09/21 06:49 11/09/21 06:49 Labs: Abnormal Lab Results - Last 24 Hours (Table) 11/09/21 11/09/21 Range/Units 06:49 06:49 RBC 3.32 L (4.10-5.20) X 10*6/uL Hgb 10.7 L (12.0-15.0) g/dL Hct 32.0 L (37.2-46.3) % MCH 32.2 H (27.0-32.0) pg Immature Gran # 0.09 H (0.00-0.04) X 10*3/uL Eosinophils # 0.03 L (0.04-0.35) X 10*3/uL Sodium 126 L (135-145) mmol/L Anion Gap 7.00 L (10.00-18.00) mmol/L Creatinine 0.5 L (0.6-1.5) mg/dL BUN/Creatinine Ratio 25.00 H (12.00-20.00) Ratio Glucose 118 H (70-110) mg/dL Assessment and Plan Assessment: Status-post left hip hemiarthroplasty on 11/04/21. Post-operative day #5. Plan: - Patient may weight bear to tolerance on the left hip with a walker. Up with assistance. Fall precautions. - Continue hip dislocation precautions. Keep the abduction pillow in place while in bed x 6 weeks. - Physical therapy for gait and balance training. - Keep Optifoam dressing in place. - Pain management as needed. - Eliquis for DVT prophylaxis. - Medical management per internal medicine team. - Anticipate discharge to rehab when medically cleared.
[2021-11-10] MEDS: FERROUS SULFATE 325 MG TAB PO SCH ×2 (10:25→17:22)
--- NOTE | 2021-11-10 11:04 | P.PN ---
Subjective Progress Note Date: 11/10/21 This patient is an 89-year-old female who is status-post left hip hemiarthroplasty on 11/04/21. Today is post-operative day #7. Patient is examined bedside this morning. Nursing is bedside. Patient has no complaints this morning. Patient was up to the bedside chair yesterday per nursing. Awaiting transfer to rehab. Objective - Vital Signs Vital signs: Vital Signs Temp 98.3 F 11/10/21 07:18 Pulse 105 H 11/10/21 07:18 Resp 16 11/10/21 07:18 BP 119/81 11/10/21 07:18 Pulse Ox 95 11/10/21 07:18 FiO2 Intake & Output 11/09/21 11/10/21 11/10/21 18:59 06:59 18:59 Output Total 800 Balance -800 Weight 45.359 kg Output: Urine 800 Other: Voiding Method Indwelling Catheter Indwelling Catheter Indwelling Catheter - Exam On examination, the patient is sitting up in bed in no apparent distress. She is alert and answers questions properly. There is an abduction pillow in place. On inspection of her left hip, there is a clean, dry, intact dressing in place. No bleeding or drainage through the dressing. There is mild swelling of the thigh, the thigh is soft and compressible. Motor and sensory function is intact of the left lower extremity. Dorsalis pedis pulse easily palpable, left lower extremity is well-perfused with brisk capillary refill distally. Calf is soft and nontender to palpation. - Labs CBC & Chem 7: 11/09/21 06:49 11/09/21 06:49 Labs: Abnormal Lab Results - Last 24 Hours (Table) 11/09/21 Range/Units 06:49 Sodium 126 L (135-145) mmol/L Anion Gap 7.00 L (10.00-18.00) mmol/L Creatinine 0.5 L (0.6-1.5) mg/dL BUN/Creatinine Ratio 25.00 H (12.00-20.00) Ratio Glucose 118 H (70-110) mg/dL Assessment and Plan Assessment: Status-post left hip hemiarthroplasty on 11/04/21. Post-operative day #6. Plan: - Patient may weight bear to tolerance on the left hip with a walker. Up with assistance. Fall precautions. - Continue hip dislocation precautions. Keep the abduction pillow in place while in bed x 6 weeks. - Physical therapy for gait and balance training. - Keep Optifoam dressing in place. - Pain management as needed. - Eliquis for DVT prophylaxis. - Medical management per internal medicine team. - Anticipate discharge to rehab when medically cleared.
--- NOTE | 2021-11-10 12:18 | P.GSCN ---
History of Present Illness Consult date: 11/10/21 Reason for Consult: Urinary retention Requesting physician: Jered Longoria History of present illness: The patient is an 89-year-old white female who sustained a left hip fracture. She underwent left hip hemiarthroplasty in 11/04/2021. Her Flores catheter was removed and she was unable to void. The Flores catheter was replaced. I am consulted for this reason. The patient is a very vague historian. She is unable to state whether or not she had voiding difficulty prior to her hip fracture. Her nurse believes that she was not out of bed while attempting to void yesterday. Review of Systems ROS unobtainable: due to mental status Past Medical History Past Medical History: Atrial Flutter, Hypertension, Thyroid Disorder Additional Past Medical History / Comment(s): essential tremmors, high cholesterol, unsteady gait History of Any Multi-Drug Resistant Organisms: None Reported Additional Past Surgical History / Comment(s): parathyroidectomy Past Anesthesia/Blood Transfusion Reactions: No Reported Reaction Past Psychological History: No Psychological Hx Reported Smoking Status: Never smoker Past Alcohol Use History: None Reported Past Drug Use History: None Reported - Past Family History Mother Additional Family Medical History / Comment(s): Breast cancer, Lung cancer Father Family Medical History: CVA/TIA, Myocardial Infarction (OR) Medications and Allergies Home Medications Medication Instructions Recorded Confirmed Type Apixaban [Eliquis] 2.5 mg PO BID 08/08/21 11/03/21 History Atorvastatin [Lipitor] 10 mg PO DAILY 08/08/21 11/03/21 History Dorzolamide 2% [Trusopt 2%] 1 drops BOTH EYES BID 08/08/21 11/03/21 History Metoprolol Tartrate [Lopressor] 100 mg PO BID 08/08/21 11/03/21 History hydrALAZINE HCL [Apresoline] 25 mg PO BID 08/08/21 11/03/21 History lisinopriL [Zestril] 20 mg PO DAILY 08/08/21 11/03/21 History Acetaminophen [Tylenol Extra 500 mg PO QID PRN 11/03/21 11/03/21 History Strength] traMADol HCl [Ultram] 50 mg PO Q6H PRN #28 tab 11/05/21 Rx Allergies Allergy/AdvReac Type Severity Reaction Status Date / Time No Known Allergies Allergy Verified 11/04/21 10:30 Surgical - Exam Vital Signs Temp Pulse Resp BP Pulse Ox 97.6 F 104 H 20 118/79 96 11/03/21 12:53 11/03/21 12:53 11/03/21 12:53 11/03/21 12:53 11/03/21 12:53 - General well developed, well nourished, no distress - Respiratory normal respiratory effort - Abdomen Abdomen: soft, non tender, no guarding, no rigid, no rebound - Psychiatric oriented to time, oriented to person, oriented to place, speech is normal, memory intact Results - Labs 11/09/21 06:49 11/09/21 06:49 Abnormal Lab Results - Last 24 Hours (Table) 11/09/21 11/09/21 Range/Units 06:49 06:49 RBC 3.32 L (4.10-5.20) X 10*6/uL Hgb 10.7 L (12.0-15.0) g/dL Hct 32.0 L (37.2-46.3) % MCH 32.2 H (27.0-32.0) pg Immature Gran # 0.09 H (0.00-0.04) X 10*3/uL Eosinophils # 0.03 L (0.04-0.35) X 10*3/uL Sodium 126 L (135-145) mmol/L Anion Gap 7.00 L (10.00-18.00) mmol/L Creatinine 0.5 L (0.6-1.5) mg/dL BUN/Creatinine Ratio 25.00 H (12.00-20.00) Ratio Glucose 118 H (70-110) mg/dL Diabetes panel 11/09/21 Range/Units 06:49 Sodium 126 L (135-145) mmol/L Potassium 4.5 (3.5-5.5) mmol/L Chloride 96 (96-109) mmol/L Carbon Dioxide 23.8 (20.0-27.5) mmol/L BUN 13.4 (9.0-27.0) mg/dL Creatinine 0.5 L (0.6-1.5) mg/dL Glucose 118 H (70-110) mg/dL Calcium 9.0 (8.7-10.3) mg/dL Calcium panel 11/09/21 Range/Units 06:49 Calcium 9.0 (8.7-10.3) mg/dL Pituitary panel 11/09/21 Range/Units 06:49 Sodium 126 L (135-145) mmol/L Potassium 4.5 (3.5-5.5) mmol/L Chloride 96 (96-109) mmol/L Carbon Dioxide 23.8 (20.0-27.5) mmol/L BUN 13.4 (9.0-27.0) mg/dL Creatinine 0.5 L (0.6-1.5) mg/dL Glucose 118 H (70-110) mg/dL Calcium 9.0 (8.7-10.3) mg/dL Adrenal panel 11/09/21 Range/Units 06:49 Sodium 126 L (135-145) mmol/L Potassium 4.5 (3.5-5.5) mmol/L Chloride 96 (96-109) mmol/L Carbon Dioxide 23.8 (20.0-27.5) mmol/L BUN 13.4 (9.0-27.0) mg/dL Creatinine 0.5 L (0.6-1.5) mg/dL Glucose 118 H (70-110) mg/dL Calcium 9.0 (8.7-10.3) mg/dL Assessment and Plan (1) Urinary retention Current Visit: Yes Status: Acute Code(s): R33.9 - RETENTION OF URINE, UNSPECIFIED SNOMED Code(s): 364210800 Plan: It is my understanding that the patient is going to a rehab center upon discharge. It would be my recommendation that the Flores catheter remain in place until she is more ambulatory, in which case the likelihood she will be able to void is much higher. She is currently receiving tamsulosin. While this may increase her ability to void, I am concerned about the fact that this may cause lightheadedness and result in a fall. Time with Patient: Less than 30
--- NOTE | 2021-11-10 14:31 | P.PN ---
Subjective Progress Note Date: 11/10/21 (Postoperative anemia, iron deficiency anemia according to the lab) Progress note date of service 11/10/[address] Twin M.D. [facility]. Patient seen [id number] today discussed with the patient and her son and daughter at bedside Confusion and disorientation has been gradually improved with the underlying delirium Patient had computed tomography scan on admission was negative. Patient under care of of the orthopedic surgeon. Laboratory indicating patient has iron deficiency anemia as well as a drop postoperative and she dropped from 16 g of hemoglobin to 10 with the associated hydration as well. Patient has hyponatremia and we did consult the nephrology as well as urology for her catheter as well and nephrology for the low sodium. Dr. Crews urology did see the patient and he recommended for adjustment of the blood pressure medication with the underlying use of Flomax may drop her blood pressure and did dizzy for that purpose we discontinue the lisinopril to improve her blood pressure however currently she is a euvolemic as well as blood pressure is stable Her vital sign indicating temperature 98.3 F oral her heart rate with a history of atrial fib paroxysmal on anticoagulant 105 this tachycardia. Respiratory rate is 16 nonlabored. Blood pressure is 121/70 and mean is 87 and repeat was 119/81 with a mean 93. Her lost sodium done on was 126 with the patient resistant hyponatremia we did consult Dr. Thorpe cupola hoist operator for hyponatremia. Patient is conscious alert able to answer the question she noted that this year is 2021 he could not catch in the month ordered 8 and she knows in the hospital The head was normocephalic atraumatic pupil was equal reactive oropharynx she had natural teeth able to eat and swallow able to also have her breakfast and last night the dinner Neck was supple no JVD no thyromegaly no lymphadenopathy trachea midline. She has a scar on the neck for previous parathyroid nodule resection by Dr. Maira Gannon Chest is clear to auscultation percussion Heart was regular sinus rhythm with the episodic of paroxysmal atrial fibrillation on anticoagulant. Abdomen is soft positive bowel sounds no tenderness in the four-quadrant Extremities patient her left leg and abduction position by the orthopedic team and the PE and nurse practitioner and they've managing her orthopedic problem as patient attending is Dr. Jered smith the orthopedic. Assessment #1 hyponatremia we consulted nephrology #2 anemia.. Mixed picture with the underlying. Postoperative, iron deficiency, hydration. #3 history of essential tremor. #4 left hip supple With the fracture repaired by the orthopedic Dr. Lawton height #5 hyperparathyroidism minimal elevation of parathyroid hormone. Plan: We'll continue current treatment #2 waiting for input of nephrology #3 urology did see her and continue the catheter at the extended care facility and to follow-up subsequently with the urology. #4 waiting for bed for rehabilitation to continue in one of the care home which showed the arrangement done by the marriage and family social worker and discharge plan. Objective - Vital Signs Vital signs: Vital Signs Temp 98.3 F 11/10/21 07:18 Pulse 105 H 11/10/21 07:18 Resp 16 11/10/21 07:18 BP 119/81 11/10/21 07:18 Pulse Ox 95 11/10/21 07:18 FiO2 Intake & Output 11/09/21 11/10/21 11/10/21 18:59 06:59 18:59 Output Total 800 Balance -800 Weight 45.359 kg Output: Urine 800 Other: Voiding Method Indwelling Catheter Indwelling Catheter Indwelling Catheter - Labs CBC & Chem 7: 11/09/21 06:49 11/09/21 06:49
[2021-11-10] MEDS ORDERED: SODIUM CHLORIDE TAB 1 GM TAB PO STA (15:22)
[2021-11-10] MEDS ORDERED: SODIUM FERRIC GLUCONAT-SUCROSE 125 MG in SODIUM CHLORIDE 0.9% 100 ML IVPB ONE (15:24)
[2021-11-10] MEDS: SENNOSIDES-DOCUSATE SODIUM 1 EACH TAB PO SCH (20:55)
--- NOTE | 2021-11-11 01:50 | CONS ---
CONSULTATION REASON FOR CONSULT: Hyponatremia. HISTORY OF PRESENT ILLNESS: The patient is an 89-year-old female who was admitted to the hospital on 11/03/2021, with history of fall and fracture of the left femur. The patient is status post surgery, on 11/04/2021, she had left hip hemiarthroplasty. The patient was maintained on IV fluids. Her sodium level was normal at 138 and 139 on initial admission and it was noted to be down to 127 on 11/07/2021. At that time, fluids were discontinued and serum sodium remains at about 128 and 126 mEq/L. There is no history of nausea, vomiting or diarrhea. Blood pressure is slightly on the lower side, although not much with systolic lowest at 106 mmHg. PAST MEDICAL HISTORY: Significant for atrial flutter, hypertension, hypothyroidism. PAST SURGICAL HISTORY: Thyroidectomy. MEDICATIONS: Prior to admission included: 1. Eliquis. 2. Lipitor. 3. Lopressor. 4. Hydralazine. 5. Zestril. ALLERGIES: None. SOCIAL HISTORY: Negative for smoking, drug abuse or alcohol abuse. PHYSICAL EXAMINATION: GENERAL: The patient is comfortable, awake, not in any acute distress. VITAL SIGNS: Blood pressure is 119/81, heart rate 105 per minute, she is afebrile. HEART: S1, S2. LUNGS: Bilateral breath sounds are heard. ABDOMEN: Soft, nontender. LOWER EXTREMITIES: Show no significant edema. CRYSTAL MOUNTER: Grossly intact. The patient is confused. LABORATORY DATA: Labs show hemoglobin 10.7, sodium 126, potassium 4.5, BUN 13, serum creatinine 0.5, iron saturation 10%. Urine sodium less than 20. ASSESSMENT: 1. Hyponatremia, most likely associated with the patient was on saline, which is now appropriately discontinued. I will give her a gram of sodium chloride tablet and she may need tolvaptan as well. Check urine osmolality as well. The patient is also encouraged to increase oral intake. 2. Status post left hip surgery. 3. Status post fall, currently with left hip hemiarthroplasty. 4. Iron deficiency, we will start supplementation. 5. Anemia, postoperatively. 6. Hypertension, currently controlled. PLAN: Sodium chloride tab x1. Check urine osmolality. Repeat sodium in a.m. Thank you for this consultation. We will continue to follow the patient with you during her hospitalization. MMODL / IJN: [id number] /
[2021-11-11 07:47] VITALS: BP 146/87; PULSE 109; RESP 16; TEMP 98
[2021-11-11] MEDS: ATORVASTATIN 10 MG TAB PO SCH (07:48)
[2021-11-11] MEDS: DORZOLAMIDE HCL 2% DROPS 10 ML BTL BOTH EYES SCH (07:48)
[2021-11-11] MEDS: bisacodyL 10 MG SUPP RECTAL SCH (07:49)
[2021-11-11] MEDS: APIXABAN 2.5 MG TABLET PO SCH (07:49)
[2021-11-11] MEDS: METOPROLOL TARTRATE 50 MG TAB PO SCH ×2 (07:49→12:46)
[2021-11-11] MEDS: TAMSULOSIN 0.4 MG CAP.ER.24H PO SCH (07:49)
[2021-11-11] MEDS: FERROUS SULFATE 325 MG TAB PO SCH (07:51)
--- NOTE | 2021-11-11 09:43 | P.PN ---
Subjective Progress Note Date: 11/11/21 This is a 89-year-old female who is status post left hip hemiarthroplasty. This is postoperative day #1 and patient is seen and evaluated at bedside today. Patient states that she is doing very well and has worked with physical therapy today. Patient does not complain of pain or any new complaints today. Objective - Vital Signs Vital signs: Vital Signs Temp 98.0 F 11/11/21 07:46 Pulse 109 H 11/11/21 07:46 Resp 16 11/11/21 07:46 BP 146/87 11/11/21 07:46 Pulse Ox 94 L 11/11/21 07:46 FiO2 Intake & Output 11/10/21 11/11/21 11/11/21 18:59 06:59 18:59 Output Total 1210 1200 Balance -1210 -1200 Weight 45.359 kg Output: Urine 1210 1200 Other: Voiding Method Indwelling Catheter Indwelling Catheter Indwelling Catheter # Bowel Movements 2 - Exam Vital signs are stable. Patient is in no acute distress and is alert and oriented 3. Calf is soft and nontender to palpation. Dressing is clean, dry, and intact. Patient has full foot and ankle motion without pain or difficulty. Sensation intact. Neurovascular status and circulatory status are intact. - Labs CBC & Chem 7: 11/09/21 06:49 11/10/21 19:13 Labs: Abnormal Lab Results - Last 24 Hours (Table) 11/10/21 11/10/21 Range/Units 15:56 19:13 Sodium 128 L (137-145) mmol/L Vitamin D 25-Hydroxy 11.9 L (30.0-100.0) ng/mL Assessment and Plan (1) S/P hip hemiarthroplasty Current Visit: Yes Status: Acute Code(s): Z96.649 - PRESENCE OF UNSPECIFIED ARTIFICIAL HIP JOINT SNOMED Code(s): 709275256 (2) Hip fracture, left Current Visit: Yes Status: Acute Code(s): S72.002A - FRACTURE OF UNSP PART OF NECK OF LEFT FEMUR, INIT SNOMED Code(s): 866928373 (3) Fall Current Visit: No Status: Acute Code(s): W19.XXXA - UNSPECIFIED FALL, INITIAL ENCOUNTER SNOMED Code(s): 2351578 Plan: Continue routine postop care and pain control. Continue hip dislocation precautions and use of abductor pillow for 6 weeks. Continue anticoagulation with Eliquis. Weightbearing as tolerated with a walker. Leave dressing in place for 7 days. Appreciate input from medicine. Patient is being followed by nephrology for hyponatremia. Patient is awaiting transfer to rehab once cleared medically.
--- NOTE | 2021-11-11 09:48 | P.DS ---
Providers Date of admission: 11/03/21 16:03 Expected date of discharge: 11/11/21 Attending physician: Jered Longoria Consults: 11/03/21 16:03 Consult Physician Routine Consulting Provider: Jacek Murcia Consult Reason/Comments: medical clearance/management Do you want consulting provider notified?: Already Contacted 11/10/21 09:09 Consult Physician Urgent Consulting Provider: Violeta Thorpe Consult Reason/Comments: Hyponatremia Do you want consulting provider notified?: Yes Primary care physician: Jacek Murcia - Discharge Diagnosis(es) (1) S/P hip hemiarthroplasty Current Visit: Yes Status: Acute (2) Hip fracture, left Current Visit: Yes Status: Acute (3) Fall Current Visit: No Status: Acute Hospital Course: This is an 89-year-old female who sustained a fracture of her left hip after a fall on 11/02/2021. The patient was evaluated in the emergency room where x- rays revealed subcapital fracture of the left hip. After discussion and cons ideration patient elects to proceed with left hip hemiarthroplasty. The patient is seen preoperatively by Dr. Longoria and medically cleared for surgery by internal medicine. Patient is admitted to [facility] on 11/03/2021 and left hip hemiarthroplasty is performed on 11/04/2021. The procedure is performed without complication or sequelae. The patient is doing well postoperatively. Labs and vital signs are stable on day of discharge. Patient has been evaluated by urology for urinary retention and nephrology for hyponatremia during this admission. On day of discharge patient's hip incision is healing well. There is minimal erythema. There is no drainage noted at this time. There is minimal soft tissue swelling to the hip and thigh. Patient has full foot and ankle motion w ithout difficulty or pain. Calf is soft and nontender to palpation. Neurovascular status to the left lower extremity is intact. Patient is discharged to rehab in good condition. Please see med rec for accurate list of home medications. Patient Condition at Discharge: Stable Plan - Discharge Summary Discharge Rx Participant: No New Discharge Prescriptions: New traMADol HCl [Ultram] 50 mg PO Q6H PRN #28 tab PRN Reason: Pain No Action Metoprolol Tartrate [Lopressor] 100 mg PO BID Atorvastatin [Lipitor] 10 mg PO DAILY Acetaminophen [Tylenol Extra Strength] 500 mg PO QID PRN PRN Reason: Fever And/ Or Pain lisinopriL [Zestril] 20 mg PO DAILY hydrALAZINE HCL [Apresoline] 25 mg PO BID Dorzolamide 2% [Trusopt 2%] 1 drops BOTH EYES BID Apixaban [Eliquis] 2.5 mg PO BID Discharge Medication List Apixaban [Eliquis] 2.5 mg PO BID 08/08/21 [History] Atorvastatin [Lipitor] 10 mg PO DAILY 08/08/21 [History] Dorzolamide 2% [Trusopt 2%] 1 drops BOTH EYES BID 08/08/21 [History] Metoprolol Tartrate [Lopressor] 100 mg PO BID 08/08/21 [History] hydrALAZINE HCL [Apresoline] 25 mg PO BID 08/08/21 [History] lisinopriL [Zestril] 20 mg PO DAILY 08/08/21 [History] Acetaminophen [Tylenol Extra Strength] 500 mg PO QID PRN 11/03/21 [History] traMADol HCl [Ultram] 50 mg PO Q6H PRN #28 tab 11/05/21 [Rx] Follow up Appointment(s)/Referral(s): Chingjess Valdez, [NON-STAFF] - As Needed Jered Longoria DO [Doctor of Osteopathic Medicine] - 2 Weeks Jacek Murcia MD [Primary Care Provider] - 1-2 days Activity/Diet/Wound Care/Special Instructions: Weightbearing as tolerated with walker. Leave dressing intact. Dressing may be removed by home care nurse or by patient in 7 days. Then change dressing twice daily until follow up. May shower with initial dressing intact and after removal. If dressing become saturated, please remove. Continue dislocation precautions and use of abductor pillow for 6 weeks. Continue Eliquis. Recommend use of compression stockings daily until follow up to help prevent swelling and blood clots. May remove at night before sleeping. Please follow[facility]up with [facility] in 2 weeks and call with any questions or concerns, [phone] Discharge Disposition: TRANSFER TO SNF/ECF
[2021-11-11 11:03] LABS: African American GFR (CKD) >90 (>60 ml/min/1.73 sqM); Anion Gap 8 mmol/L; Blood Urea Nitrogen 12 mg/dL (7-17); Calcium 8.6 mg/dL (8.4-10.2); Carbon Dioxide 24 mmol/L (22-30); Chloride 99 mmol/L (98-107); Glucose 105 mg/dL (74-99); Non-African American GFR(CKD) 82 (>60 ml/min/1.73 sqM); Sodium 131 mmol/L (137-145)
--- NOTE | 2021-11-11 11:07 | P.PN ---
Subjective Patient is seen for follow-up for hyponatremia. Currently off of IV fluids Status post sodium chloride tablets 1 g yesterday Sodium improved to 128 from 125 yesterday. Labs are pending from today. Objective - Vital Signs Vital signs: Vital Signs Temp 98.0 F 11/11/21 07:46 Pulse 109 H 11/11/21 07:46 Resp 16 11/11/21 07:46 BP 146/87 11/11/21 07:46 Pulse Ox 94 L 11/11/21 07:46 FiO2 Intake & Output 11/10/21 11/11/21 11/11/21 18:59 06:59 18:59 Output Total 1210 1200 Balance -1210 -1200 Weight 45.359 kg Output: Urine 1210 1200 Other: Voiding Method Indwelling Catheter Indwelling Catheter Indwelling Catheter # Bowel Movements 2 - Exam Awake, comfortable, not in any acute distress Examination of the heart S1 and S2 Examination lungs bilateral breath sounds are heard Abdomen is soft nontender Examination of the lower extremity shows edema 1+ bilaterally - Labs CBC & Chem 7: 11/09/21 06:49 11/10/21 19:13 Labs: Abnormal Lab Results - Last 24 Hours (Table) 11/10/21 11/10/21 Range/Units 15:56 19:13 Sodium 128 L (137-145) mmol/L Vitamin D 25-Hydroxy 11.9 L (30.0-100.0) ng/mL Assessment and Plan Assessment: 1. Hyponatremia most likely associated with poor solute intake. Urine osmolality was low at 165. Urine sodium at less than 20. Patient is status post sodium chloride Yesterday with improvement in serum sodium level. Repeat labs today and continue off of IV fluids for now. Patient is encouraged to increase oral intake particularly protein. 2. Status post recent left hip hemiarthroplasty 3. Iron deficiency status post 1 dose of IV iron and maintained on oral supplementation 4. Benign hypertension currently controlled Plan: Continue off of IV fluids Check sodium today Encourage increased oral intake
[2021-11-11] MEDS ORDERED: ERGOCALCIFEROL 1,250 MCG (50,000 IU) CAPSULE PO SCH (12:00)
--- NOTE | 2021-11-11 12:48 | P.PN ---
Subjective Progress Note Date: 11/11/21 Progress note Date of service 11/11/2021 Follow-up on the medical consult for medical management. Attending physician Dr. Jered Quiroga, orthopedic surgeon. Patient seen today [id number] evaluated. Conscious alert oriented with intermittent confusion and delirium. Dictation by Dr. Grady Riddle FACP. Vital sign stable blood pressure 146/87 with a mean 106 her saturation 94%. Temperature 98.0 F oral. Rate 16/m. Nonlabored. The orthopedic surgeon discharge patient today to medical [place] [facility] for continuing rehabilitation. Patient seen by Dr. Thorpe for hypo-natremia, she will be followed by Dr. Thorpe as outpatient, sodium today 131 improved potassium is 4. And anion gap of 8 blood sugar 105 no evidence of diabetes. Vitamin D 25-hydroxy 11.9 and need for vitamin D supplementation as outpatient probably vitamin D3 2000 unit gelatinous capsule once a day as outpatient in the halfway. Thyroid function is normal Cortizone level is normal. On exam: Vital signs stable Head was normocephalic and atraumatic Oropharynx natural teeth able to eat and swallow Chest clear to auscultation percussion no wheezes no rhonchi's Heart she had history of atrial fibrillation with fast ventricular response and currently she is on beta yumiko metoprolol increased to 100 mg twice a day added to lunchtime 50 mg she needs to be followed as outpatient by her scrap piler for for further adjustment. If needed Abdomen soft positive bowel sounds Extremities no edema positive pulses. She has Flores catheter after trial for discontinuation 2 failed consultation with urology was obtained [facility] Need to follow-up as outpatient in 10-14 days. Pain controlled for orthopedic surgeon and prescription by orthopedic surgeon Med rec was evaluated and adjusted. The assessment: #1 left hip hemiarthroplasty with underlying sub-O fracture of the left hip was done by Dr. Jered maldonado orthopedic associate surgeon #2 chronic atrial fibrillation on anticoagulant #3 hyponatremia #4 urine retention with the failed the trial to discontinue the Flores catheter seen by Dr. Sherry Cabral urologist and to follow-up with them in 1-2 weeks. #5 delirium #6 essential tremors her that rate. Plan: Patient discharged by the orthopedic surgeon to medical [place] [facility] for continuing rehab. #1 continue the iron with the iron is deficiency anemia. Recheck CBC and iron study in 1 month's. #2 follow-up with Dr. Thorpe for hypo-natremia. #3 monitoring the blood pressure. Adjust medication accordingly. #4 follow-up with the orthopedic surgeon for the left hip #5 rehabilitation. The orthopedic team. #6 follow-up with Dr. Sherry Cabral the urologist for Flores catheter future assessment and removal. #7 patient with vitamin D deficiency and need to be started on vitamin D 3 OTC softgel 2000 unit once a day #8 continue the iron pill 325 mg ferrous sulfate twice a day #9 continue pain medication. Orthopedic orders and prescription. #10 repeat BMP and 10 days monitoring the hyponatremia. #11 patient cleared from medical side for discharge to the halfway #12 attending physician is orthopedic Dr. Lawton orthopedic associate Objective - Vital Signs Vital signs: Vital Signs Temp 98.0 F 11/11/21 07:46 Pulse 109 H 11/11/21 07:46 Resp 16 11/11/21 07:46 BP 146/87 11/11/21 07:46 Pulse Ox 94 L 11/11/21 07:46 FiO2 Intake & Output 11/10/21 11/11/21 11/11/21 18:59 06:59 18:59 Output Total 1210 1200 Balance -1210 -1200 Weight 45.359 kg Output: Urine 1210 1200 Other: Voiding Method Indwelling Catheter Indwelling Catheter Indwelling Catheter # Bowel Movements 2 - Labs CBC & Chem 7: 11/09/21 06:49 11/11/21 10:05 Labs: Abnormal Lab Results - Last 24 Hours (Table) 11/10/21 11/10/21 11/11/21 Range/Units 15:56 19:13 10:05 Sodium 128 L 131 L (137-145) mmol/L Glucose 105 H (74-99) mg/dL Vitamin D 25-Hydroxy 11.9 L (30.0-100.0) ng/mL
== END 2021-11-11 15:42 | DRG 522 ==
LOC: EC 12:28 → 4SSUR 16:03
PROVIDERS: ADMIT Orthopaedic Surgery; ATTEND Orthopaedic Surgery
PROC: 0SRS0JA Replacement of Left Hip Joint, Femoral Surface with Synthetic Substitute, Uncemented, Open Approach (ICD-10-PCS; principal; 2021-11-04 07:30)
DX: S72.012A Unspecified intracapsular fracture of left femur, initial encounter for closed fracture (principal); I48.20 Chronic atrial fibrillation, unspecified; I48.92 Unspecified atrial flutter; F05 Delirium due to known physiological condition; E87.1 Hypo-osmolality and hyponatremia; I10 Essential (primary) hypertension; E89.0 Postprocedural hypothyroidism; D50.9 Iron deficiency anemia, unspecified; J44.9 Chronic obstructive pulmonary disease, unspecified; I08.3 Combined rheumatic disorders of mitral, aortic and tricuspid valves; F03.90 Unspecified dementia, unspecified severity, without behavioral disturbance, psychotic disturbance, mood disturbance, and anxiety; E86.0 Dehydration; D32.0 Benign neoplasm of cerebral meninges; E78.00 Pure hypercholesterolemia, unspecified; G25.0 Essential tremor; D72.828 Other elevated white blood cell count; W18.30XA Fall on same level, unspecified, initial encounter; M81.0 Age-related osteoporosis without current pathological fracture; H40.9 Unspecified glaucoma; M62.81 Muscle weakness (generalized); R00.0 Tachycardia, unspecified; R33.9 Retention of urine, unspecified; R26.81 Unsteadiness on feet; E21.1 Secondary hyperparathyroidism, not elsewhere classified; E55.9 Vitamin D deficiency, unspecified; M41.9 Scoliosis, unspecified; R01.1 Cardiac murmur, unspecified; K59.00 Constipation, unspecified; Z79.899 Other long term (current) drug therapy; Z79.01 Long term (current) use of anticoagulants; Z86.018 Personal history of other benign neoplasm; Z87.81 Personal history of (healed) traumatic fracture; Z80.1 Family history of malignant neoplasm of trachea, bronchus and lung; Z80.3 Family history of malignant neoplasm of breast; Z82.3 Family history of stroke; Z82.49 Family history of ischemic heart disease and other diseases of the circulatory system
CPT/HCPCS: 36415; 70450; 73501; 80048; 81001; 82306; 82330; 82533; 82652; 83036; 83540; 83550; 83735; 83930; 83935; 83970; 84295; 84300; 84443; 85025; 85610; 85730; 86850; 86900; 86901; 88305; 88311; 93005; 96361; 96374; 99285

== ENCOUNTER → 2021-11-03 | Outpatient (CLI) | payer MEDICARE ==
--- NOTE | 2021-11-03 12:21 | XR ---
EXAMINATION TYPE: XR Hip LT and AP Pelvis DATE OF EXAM: 11/03/2021 COMPARISON: None HISTORY: Fall unable to bear weight left hip TECHNIQUE: 2 view left hip supplemented with an AP pelvis FINDINGS: There is a subtle subcapital fracture left hip. If confirmation radiographic, CT could be p erformed. Femoral head articulates with the acetabulum. Symphysis pubis and sacroiliac joints are normal. Fecal debris is in the distal colon. Right femoral head articulates with the acetabulum. IMPRESSION: 1. Subcapital fracture left hip. Office was notified of the results at the time of imaging.
== END | disposition home or self-care (01) ==
LOC: RADXRMAIN 11:56
PROVIDERS: ATTEND Internal Medicine
DX: S72.012A Unspecified intracapsular fracture of left femur, initial encounter for closed fracture (principal); W19.XXXA Unspecified fall, initial encounter
CPT/HCPCS: 73502

== ENCOUNTER → 2022-01-21 | Outpatient (CLI) | payer MEDICARE ==
[2022-01-21 14:38] LABS: Basophils # (A) 0.07 X 10*3/uL (0.00-0.10); Basophils % (A) 0.8 %; Eosinophils # (A) 0.22 X 10*3/uL (0.04-0.35); Eosinophils % (A) 2.7 %; HCT 46.6 % (37.2-46.3); HGB 14.1 g/dL (12.0-15.0); Immature Grans, Automated 0.2 %; Lymphocytes # (A) 2.91 X 10*3/uL (0.90-5.00); Lymphocytes % (A) 35.3 %; MCH 30.9 pg (27.0-32.0); MCHC 30.3 g/dL (32.0-37.0); Mean Platelet Volume 10.8 fL (9.5-12.2); Monocytes # (A) 0.63 X 10*3/uL (0.20-1.00); Monocytes % (A) 7.6 %; NRBC Per 100 WBC 0 /100 WBCS (0.0-0.0); Neutrophils # (A) 4.39 X 10*3/uL (1.80-7.70); Neutrophils % (A) 53.4 %; Platelet Count 187 X 10*3/uL (140-440); RBC 4.57 X 10*6/uL (4.10-5.20); RDW 15.4 % (11.5-14.5); WBC 8.24 X 10*3/uL (4.50-10.00)
[2022-01-21 15:27] LABS: Erythrocyte Sedimentation Rate 5 mm/Hr (0-30)
[2022-01-21 15:45] LABS: % Iron Saturation 41.15 (12.00-45.00); ALT 16 U/L (8-44); AST 19 U/L (13-35); African American GFR (CKD) 71.7 (60.0-200.0); Albumin/Globulin Ratio 1.65 (1.60-3.17); Alkaline Phosphatase 106 U/L (41-126); BUN/Creat Ratio 18.64 Ratio (12.00-20.00); Blood Urea Nitrogen 15.6 mg/dL (9.0-27.0); Calcium 10.1 mg/dL (8.7-10.3); Chloride 104 mmol/L (96-109); Globulin 2.4 g/dL (1.6-3.3); Glucose 94 mg/dL (70-110); Iron 125 ug/dL (50-170); Magnesium 2.5 mg/dL (1.5-2.4); Non-African American GFR(CKD) 61.9 (60.0-200.0); Phosphorus 3.3 mg/dL (2.4-5.1); Potassium 3.8 mmol/L (3.5-5.5); Sodium 141 mmol/L (135-145); Total Iron Binding Capacity 304 ug/dL (228-460); Total Protein 6.5 g/dL (6.2-8.2); Uric Acid 5.4 mg/dL (2.9-7.7)
[2022-01-21 15:48] LABS: C Reactive Protein <0.30 mg/dL (0.00-0.80); Chol/HDL Ratio 4.06 Ratio; Creatine Kinase 59 U/L (26-186); LDL Cholesterol,Calculated 136.7 mg/dL (0.0-131.0)
== END | disposition home or self-care (01) ==
LOC: LABWHC1 07:54
PROVIDERS: ATTEND Internal Medicine
DX: Z00.00 Encounter for general adult medical examination without abnormal findings (principal); I13.0 Hypertensive heart and chronic kidney disease with heart failure and stage 1 through stage 4 chronic kidney disease, or unspecified chronic kidney disease; I50.9 Heart failure, unspecified; I48.91 Unspecified atrial fibrillation; N18.30 Chronic kidney disease, stage 3 unspecified; E78.5 Hyperlipidemia, unspecified; E11.65 Type 2 diabetes mellitus with hyperglycemia; E11.22 Type 2 diabetes mellitus with diabetic chronic kidney disease
CPT/HCPCS: 36415; 80053; 80061; 82306; 82550; 82728; 83036; 83540; 83550; 83735; 83970; 84100; 84439; 84443; 84550; 85025; 85652; 86140

== ENCOUNTER → 2022-03-02 | Outpatient (CLI) | payer MEDICARE ==
[2022-03-02 17:48] LABS: Basophils # (A) 0.05 X 10*3/uL (0.00-0.10); Basophils % (A) 0.7 %; Eosinophils # (A) 0.13 X 10*3/uL (0.04-0.35); Eosinophils % (A) 1.8 %; HCT 49.1 % (37.2-46.3); HGB 15.1 g/dL (12.0-15.0); Immature Grans, Automated 0.3 %; Lymphocytes # (A) 2.11 X 10*3/uL (0.90-5.00); MCH 31.9 pg (27.0-32.0); MCHC 30.8 g/dL (32.0-37.0); MCV 103.6 fL (80.0-97.0); Mean Platelet Volume 10.7 fL (9.5-12.2); NRBC Per 100 WBC 0 /100 WBCS (0.0-0.0); Neutrophils # (A) 4.02 X 10*3/uL (1.80-7.70); Neutrophils % (A) 57.2 %; Platelet Count 170 X 10*3/uL (140-440); RBC 4.74 X 10*6/uL (4.10-5.20); RDW 14.5 % (11.5-14.5); WBC 7.03 X 10*3/uL (4.50-10.00)
== END | disposition home or self-care (01) ==
LOC: LABWHC1 11:44
PROVIDERS: ATTEND Internal Medicine
DX: B34.9 Viral infection, unspecified (principal); J06.9 Acute upper respiratory infection, unspecified
CPT/HCPCS: 36415; 85025; 87502; 87634